=== PATIENT | male | born 1955 | race Caucasian/White ===

== ENCOUNTER 2016-08-11 09:01 | Emergency (ER) | payer MEDICAID ==
[~2016-08-11] VITALS: Ht 175.3 cm; Wt 88.5 kg
[~2016-08-11 09:01] MED LIST: AMLO5TAB PO; AMOXICOT500 MG PO; ASPIR-LOW81 MG PO; AUGMENTIN 875-1 EACH PO; BACTRIM DS 8001 TAB PO; BYSTOLIC5 MG PO; CIPRO 500MG TA500 MG PO; CITALOPRAM HYDR20 MG PO; CLOPIDOGREL75 M1 PO; FLOMAX 0.4MG C0.4 MG PO; LISINOPRIL 20MG20 MG PO; LORTAB 5/500 501 TAB PO; LORTAB 5/5001 TAB OR; NOMEDS *; VICODIN 5/6 EACH/PAK OR
--- OUTSIDE RECORDS SUMMARY | 2016-08-11 09:09 | External Medical Summary Rpt ---
Author Author , Organization [employer] Address Unknown Phone Unavailable Care Team Providers Care Snagger Name Role Phone EFRA RICARDO Unavailable Unavailable MARGARITA EFRA MARGARITA, ARNOLD Unavailable Unavailable MARGARITA BESSON, BESSON Unavailable Unavailable BESSON TORIBIO, BESSON Unavailable Unavailable TORIBIO KNUTSON MD, Unavailable Unavailable JEROMY KNUTSON MD [facility] Unavailable Unavailable [place], [facility] Unavailable Unavailable [place], [facility] [place] LESLI, LESLI Unavailable Unavailable LESLI BALDEMAR, Unavailable Unavailable LESLI BALDEMAR AXEL REYNA Unavailable Unavailable BRITTANY LIZ, BRITTANY Unavailable Unavailable LIZ [facility] Unavailable Unavailable INC, [facility] Unavailable Unavailable H[facility]PITAL P, [facility], Unavailable Unavailable [facility] Unavailable Unavailable IMAGING [facility], [facility] Unavailable Unavailable [facility], [facility] Unavailable Unavailable [facility], [facility] STUART ARANZA, STUART Unavailable Unavailable ARANZA [facility] Unavailable Unavailable [facility], [facility] DEBORA DIAMOND MD, Unavailable Unavailable DEBORA DIAMOND MD [facility] Un[facility], Unavailable Unavailable PLL, [facility], [facility] HAR[facility], [facility] Unavailable Unavailable SHOJAEI-TEMO, Unavailable Unavailable [facility]AE[facility]O [facility] Unavailable Unavailable JAL, SHOJAEI-TEMO JAL GABRIELLA, GABRIELLA Unavailable Unavailable GABRIELLA MAT, Unavailable Unavailable GABRIELLA MAT THERESA BRAGG, Unavailable Unavailable FAHAD DIAS Unavailable Unavailable Purpose Continuity of Care Document - 12-14-2012 through 2016 Problems Code Diagnosis DOS Provider Status I119 HYPERTENSIV 05-19-2016 [facility] E HEART PHYSICIANS DISEASE GROUP WITHOUT HEART FAILURE 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 SEPTUM GROUP [id number] ENCOUNTER 02-07-2016 [facility] RESPIRATORY EXAM M17192 ENCOUNTER 02-07-2016 [facility] LABORATORY EXAM I10 ESSENTIAL 01-27-2016 [facility] PRIMARY HYPERTENSIO N [id number] PAIN IN 12-30-2015 [facility] RIGHT LEG PHYSICIANS GROUP [id number] PAIN IN 12-30-2015 [facility] LEFT LEG PHYSICIANS GROUP J069 ACUTE UPPER 11-29-2015 [facility] RESPIRATORY INFECTION UNSPECIFIED M96160 PAIN IN LEG 10-28-2015 [facility] PHYSICIANS UNSPECIFIED GROUP D649 ANEMIA 10-07-2015 [facility] UNSPECIFIED PHYSICIANS [place] E119 TYPE 2 10-07-2015 [facility] MELLITUS HOLDINGS WITHOUT COMPLICATIO NS E538 DEFICIENCY 10-07-2015 [facility] OTHER PHYSICIANS SPECIFIED B LA GROUP VITAMINS E785 HYPERLIPIDE 10-07-2015 [facility] UNSPECIFIED HOLDINGS R531 WEAKNESS 10-07-2015 [facility] G589 MONONEUROPA 10-03-2015 [facility] THY PHYSICIANS, UNSPECIFIED PLLC K5289 OTH SPEC 09-26-2015 [facility] NONINFECTIV E GASTROENTER ITIS & COLITIS J329 CHRONIC 09-23-2015 [facility] SINUSITIS PHYSICIANS, UNSPECIFIED PLLC R42 DIZZINESS 09-23-2015 [facility] R509 FEVER 09-23-2015 [facility] UNSPECIFIED PHYSICIANS, PLLC R55 SYNCOPE AND 09-23-2015 [facility] P A76131 PERSONAL 09-23-2015 [facility] H[facility]ORY OF [facility] DEPENDENCE M6240 CONTRACTURE 09-20-2015 ARNOLD MARGARITA OF MUSCLE UNSPECIFIED SITE E039 HYPOTHYROID 05-30-2015 [facility] ISM PHYSICIANS UNSPECIFIED LA Z125 ENCOUNTER 05-30-2015 [facility] SCREENING PHYSICIANS MALIGNANT LA NEOPLASM PROSTATE J0100 ACUTE 05-23-2015 [facility] MAXILLARY PHYSICIANS, SINUSITIS PLLC UNSPECIFIED M150 PRIMARY 05-10-2015 ARNOLD MARGARITA GENERALIZED OSTEOARTHRI TIS M542 CERVICALGIA 04-23-2015 [facility] R079 CHEST PAIN 04-23-2015 [facility] UNSPECIFIED PHYSICIANS GROUP J9811 ATELECTASIS 04-03-2015 [facility] R0602 SHORTNESS 04-03-2015 [facility] OF [facility] I214 NON-ST 04-01-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 MED R51 HEADACHE 04-01-2015 [facility] R748 ABNORMAL 04-01-2015 [place] [facility] P ENZYMES 592.1 592.1 12-14-2012 [place] CALCULUS [facility] 592.9 592.9 12-14-2012 [place] URINARY [facility] NOS Allergies, Adverse Reactions, Alerts Type Allergy to substance Drug Allergy Adverse Reaction to Substance Substance Reaction Severity INGREDIENT: NO KNOWN Unknown Unknown - NO KNOWN DRUG ALLERGY No Known Allergies - Unknown Mild Nka Clinical Alert Notifications Alert Diabetes: no A1C in the last 6 months Diabetes: no eye exam in the last 365 days Diabetes: no influenza vaccine in the last 365 days Diabetes: no lipid panel in the last 365 days Diabetes: no urine protein screening in the last 365 days Medications Na ND Rx Da Fi Fi Am Da Di Ph RX Ph St me C No te ll ll ou ys ag ar # ys at rm s nt no ma ic us Or Da si cy ia de te s n re d GA 42 04 05 60 30 00 CL Ac BA 58 -2 -2 .0 00 IN ti PE 20 8- 6- 00 00 IC ve NT 11 20 20 42 IN 51 17 17 21 PH 8 51 AR 30 MA 0 CY MG CA PS UL E 64 03 04 4. 28 00 CL Ac T 38 -2 -1 00 00 IN ti D2 00 2- 4- 0 00 IC ve 73 20 20 39 1. 70 17 17 50 PH 25 6 94 AR MA MG CY (5 0, 00 0 UN IT ) AM 67 03 04 90 90 00 CL Ac LO 87 -2 -1 .0 00 IN ti DI 70 1- 4- 00 00 IC ve PI 19 20 20 42 NE 81 17 17 58 PH 0 81 AR BE MA SY CY LA TE 5 MG TA B TI 60 03 04 90 30 00 CL Ac ZA 50 -2 -1 .0 00 IN ti NI 50 2- 4- 00 00 IC ve DI 25 20 20 40 NE 20 17 17 34 PH 2 82 AR HC MA L CY 4 MG TA BL ET AM 67 02 03 30 30 00 CL Ac LO 87 -2 -1 .0 00 IN ti DI 70 0- 7- 00 00 IC ve PI 19 20 20 39 NE 81 17 17 46 PH 0 14 AR BE MA SY CY LA TE 5 MG TA B GA 45 02 03 60 30 00 CL Ac BA 96 -1 -1 .0 00 IN ti PE 30 3- 0- 00 00 IC ve NT 55 20 20 42 IN 65 17 17 21 PH 0 51 AR 30 MA 0 CY MG CA PS UL E AM 67 01 02 30 30 00 CL Ac LO 87 -1 -1 .0 00 IN ti DI 70 8- 0- 00 00 IC ve PI 19 20 20 39 NE 81 17 17 46 PH 0 14 AR BE MA SY CY LA TE 5 MG TA B 51 12 01 4. 28 00 CL Ac T 99 -1 -2 00 00 IN ti D2 10 5- 0- 0 00 IC ve 60 20 20 39 1. 40 16 17 50 PH 25 1 94 AR MA MG CY (5 0, 00 0 UN IT ) AM 67 12 01 30 30 00 CL Ac LO 87 -1 -2 .0 00 IN ti DI 70 9- 0- 00 00 IC ve PI 19 20 20 39 NE 81 16 17 46 PH 0 14 AR BE MA SY CY LA TE 5 MG TA B MO 16 12 01 30 30 00 CL Ac NT 72 -0 -0 .0 00 IN ti EL 90 2- 9- 00 00 IC ve UK 11 20 20 41 91 16 17 51 PH T 5 05 AR SO MA D CY 10 MG TA BL ET Sa 63 10 0 No li 80 -0 ne 70 9- Lo 10 20 ng Fl 07 13 er us 5 h Ac 10 ti ML ve Sy ri ng e ON 00 10 0 No DA 64 -0 NS 16 9- Lo ET 08 20 ng RO 02 13 er N 5 HC Ac L ti 4 ve MG /2 ML AL Mo 00 10 0 No rp 40 -0 hi 91 9- Lo ne 26 20 ng 13 13 er 10 0 MG Ac /M ti l ve Sy ri ng e Le 51 10 0 No vo 07 -0 fl 90 9- Lo ox 03 20 ng ac 52 13 er in 0 Ac 50 ti 0M ve G Ta bl et SO 00 10 0 No DI 40 -0 UM 97 9- Lo 98 20 ng CH 30 13 er LO 9 RI Ac DE ti ve 0. 9% SO DAVID TI ON Sa 63 10 0 No li 80 -0 ne 70 9- Lo 10 20 ng Fl 07 13 er us 5 h Ac 10 ti ML ve Sy ri ng e HY [address] 40 -0 OM 91 9- Lo OR 31 20 ng PH 23 13 er ON 0 E Ac 2 ti MG ve /M L CA RP UJ CT SD 00 10 0 No OM 64 -0 ET 11 9- Lo MARIN 49 20 ng ZI 53 13 er NE 5 Ac 25 ti ve MG /M L AM PU L Sa 63 10 0 No li 80 -0 ne 70 9- Lo 10 20 ng Fl 07 13 er us 5 h Ac 10 ti ML ve Sy ri ng e Vital Signs 12-14-2012 15:35 Name Value Interpretat Reference Comment ion Range Body 98.4 [degF] Temperature BP 80 mm[Hg] Diastolic BP Systolic 147 mm[Hg] Heart 98 /min Rate/Pulse O2% 98 % Respiratory 18 /min Rate 12-14-2012 15:33 Name Value Interpretat Reference Comment ion Range Body 98.4 [degF] Temperature 12-14-2012 13:41 Name Value Interpretat Reference Comment ion Range BP 94 mm[Hg] Diastolic BP Systolic 145 mm[Hg] Heart 84 /min Rate/Pulse O2% 96 % Respiratory 20 /min Rate 12-14-2012 02:40 Name Value Interpretat Reference Comment ion Range BP 95 mm[Hg] Diastolic BP Systolic 143 mm[Hg] Heart 82 /min Rate/Pulse O2% 96 % Respiratory 16 /min Rate 12-14-2012 01:20 Name Value Interpretat Reference Comment ion Range BP 101 mm[Hg] Diastolic BP Systolic 173 mm[Hg] Heart 76 /min Rate/Pulse O2% 99 % Respiratory 20 /min Rate Results Labs Lab Lab Date Result Refere Interp Status Commen Order Detail nces retati t Range on COMPREHENSIVE METABOLIC PANEL (12-14-2012 13:00) Glucose 140 74-106 complet 013 mg/dL ed Bld-mCn 13:00 c BUN 15 7-18 complet Bld-mCn 013 mg/dL ed c 13:00 Creat 1.5 0.8-1.3 complet SerPl-m 013 mg/dL ed Cnc 13:00 ESTIMAT 64 50-200 complet ED 013 ML/MIN ed CREATIN 13:00 INE CLEARAN CE GFR 48 Greater complet (ESTIMA 013 ML/MIN than ed KANCHAN) 13:00 60 Sodium 141 136-145 complet SerPl-s 013 mmoL/L ed Cnc 13:00 Potassi 4.1 3.5-5.1 complet um 013 mmoL/L ed SerPl-s 13:00 Cnc Chlorid 103 98-107 complet e 013 mmoL/L ed SerPl-s 13:00 Cnc CO2 29 21.0-32 complet SerPl-s 013 mmoL/L .0 ed Cnc 13:00 Calcium 9.2 8.5-10. complet 013 mg/dL 1 ed SerPl-m 13:00 Cnc Prot 7.9 6.4-8.2 complet SerPl-m 013 gm/dL ed Cnc 13:00 Albumin 4.4 3.4-5.0 complet 013 gm/dL ed SerPl-m 13:00 Cnc Globuli 3.5 1.3-3.2 complet n 013 gm/dL ed Ser-mCn 13:00 c Albumin 1.3 UNK 1.1-1.8 complet /Glob 013 ed SerPl-m 13:00 Rto Bilirub 0.6 0.2-1.0 complet 013 mg/dL ed SerPl-m 13:00 Cnc AST 17 U/L 15-37 complet SerPl-c 013 ed Cnc 13:00 ALT 40 U/L 30-65 complet SerPl-c 013 ed Cnc 13:00 ALP 126 U/L 50-136 complet SerPl-c 013 ed Cnc 13:00 CBC with AUTO DIFF (12-14-2012 13:00) WBC # 12-14- 7.9 4.8-10. complet Bld 013 K/MM3 8 ed Auto 13:00 RBC # 5.00 4.6-6.2 complet Bld 013 M/mm3 ed Auto 13:00 Hgb 14.6 14.1-18 complet Bld-mCn 013 g/dL .0 ed c 13:00 Hct Fr 44.1 % 42.0-52 complet Bld 013 .0 ed 13:00 MCV RBC 88.2 fl 82.2-97 complet 013 .8 ed 13:00 MCH RBC 29.1 pg 27-31.2 complet Qn 013 ed Auto 13:00 MEAN 33.0 31.8-35 complet CORPUSC 013 g/dl .4 ed ULAR 13:00 HGB CONC RDW RBC 14.8 % 11.5-17 complet Auto 013 .5 ed 13:00 Platele 228 142-424 complet t Bld 013 K/mm3 ed Ql 13:00 Manual MEAN 7.7 fl 7.4-10. complet PLATELE 013 4 ed T 13:00 VOLUME Granulo 79.9 % 37.0-80 complet cytes 013 .0 ed Fr Bld 13:00 Auto LYMPH % 14.5 % 10-50 complet 013 ed 13:00 Monocyt 5.1 % 1.7-9.3 complet es Fr 013 ed Bld 13:00 Auto Eosinop 0.4 % 0.1-12. complet hil Fr 013 0 ed Bld 13:00 Auto Basophi 0.1 % 0.1-2.0 complet ls Fr 013 ed Bld 13:00 Auto Granulo 6.3 1.3-8.0 complet cytes # 013 K/mm3 ed Bld 13:00 Auto Lymphoc 1.2 0.7-4.5 complet ytes Fr 013 K/mm3 ed Bld 13:00 Auto Monocyt 0.4 0.1-1.0 complet es # 013 K/mm3 ed Bld 13:00 Auto Eosinop 0.0 0.0-0.4 complet hil # 013 K/mm3 ed Bld 13:00 Auto Basophi 0.0 0-0.2 complet ls # 013 K/MM3 ed Bld 13:00 Auto URINALYSIS/COMPLETE (12-14-2012 13:00) URINE YELLOW YELLOW complet COLOR 013 ed 13:00 URINE CLEAR CLEAR complet APPEARA 013 ed NCE 13:00 URINE NEGATIV NEG complet GLUCOSE 013 E ed - 13:00 DIPSTIC K URINE NEGATIV NEG complet BILIRUB 013 E ed IN - 13:00 DIPSTIC K URINE NEGATIV NEG complet KETONE 013 E mg/dL ed 13:00 URINE Greater 1.005-1 complet SPECIFI 013 than .030 ed C 13:00 or GRAVITY equal to 1.030 URINE 3+ NEG complet BLOOD 013 ed 13:00 URINE 5.5 UNK 5.0-8.5 complet PH 013 ed 13:00 URINE NEGATIV NEG complet PROTEIN 013 E mg/dL ed - 13:00 DIPSTIC K URINE 0.2 NEG complet UROBILI 013 E.U./dL ed NOGEN - 13:00 DIPSTIC K URINE NEGATIV NEG complet NITRATE 013 E ed - 13:00 DIPSTIC K URINE NEGATIV NEG complet LEUK 013 E ed ESTERAS 13:00 E URINE 50-100 0 complet RBC 013 rbc/hpf ed 13:00 URINE OCC O complet WBC 013 wbc/hpf ed 13:00 URINE OCC OCC complet SQUAMOU 013 #/hpf ed S CELLS 13:00 URINE TRACE O complet BACTERI 013 ed A 13:00 URINE OCC NONE complet HYALINE 013 #/lpf ed CAST 13:00 URINE 2+ NONE complet MUCUS 013 ed 13:00 COMPREHENSIVE METABOLIC PANEL (12-14-2012 00:48) Glucose 138 74-106 complet 013 mg/dL ed Bld-mCn 00:48 c BUN 16 7-18 complet Bld-mCn 013 mg/dL ed c 00:48 Creat 1.5 0.8-1.3 complet SerPl-m 013 mg/dL ed Cnc 00:48 ESTIMAT 65 50-200 complet ED 013 ML/MIN ed CREATIN 00:48 INE CLEARAN CE GFR 48 Greater complet (ESTIMA 013 ML/MIN than ed KANCHAN) 00:48 60 Sodium 144 136-145 complet SerPl-s 013 mmoL/L ed Cnc 00:48 Potassi 3.7 3.5-5.1 complet um 013 mmoL/L ed SerPl-s 00:48 Cnc Chlorid 103 98-107 complet e 013 mmoL/L ed SerPl-s 00:48 Cnc CO2 30 21.0-32 complet SerPl-s 013 mmoL/L .0 ed Cnc 00:48 Calcium 9.0 8.5-10. complet 013 mg/dL 1 ed SerPl-m 00:48 Cnc Prot 7.8 6.4-8.2 complet SerPl-m 013 gm/dL ed Cnc 00:48 Albumin 4.3 3.4-5.0 complet 013 gm/dL ed SerPl-m 00:48 Cnc Globuli 3.5 1.3-3.2 complet n 013 gm/dL ed Ser-mCn 00:48 c Albumin 1.2 UNK 1.1-1.8 complet /Glob 013 ed SerPl-m 00:48 Rto Bilirub 0.4 0.2-1.0 complet 013 mg/dL ed SerPl-m 00:48 Cnc AST 19 U/L 15-37 complet SerPl-c 013 ed Cnc 00:48 ALT 39 U/L 30-65 complet SerPl-c 013 ed Cnc 00:48 ALP 117 U/L 50-136 complet SerPl-c 013 ed Cnc 00:48 CBC with AUTO DIFF (12-14-2012 00:48) WBC # 12-14-2 8.5 4.8-10. complet Bld 013 K/MM3 8 ed Auto 00:48 RBC # 12-14-2 4.76 4.6-6.2 complet Bld 013 M/mm3 ed Auto 00:48 Hgb 14.8 14.1-18 complet Bld-mCn 013 g/dL .0 ed c 00:48 Hct Fr 41.6 % 42.0-52 complet Bld 013 .0 ed 00:48 MCV RBC 87.3 fl 82.2-97 complet 013 .8 ed 00:48 MCH RBC 31.2 pg 27-31.2 complet Qn 013 ed Auto 00:48 MEAN 35.7 31.8-35 complet CORPUSC 013 g/dl .4 ed ULAR 00:48 HGB CONC RDW RBC 14.6 % 11.5-17 complet Auto 013 .5 ed 00:48 Platele 228 142-424 complet t Bld 013 K/mm3 ed Ql 00:48 Manual MEAN 7.7 fl 7.4-10. complet PLATELE 013 4 ed T 00:48 VOLUME Granulo 71.0 % 37.0-80 complet cytes 013 .0 ed Fr Bld 00:48 Auto LYMPH % 21.5 % 10-50 complet 013 ed 00:48 Monocyt 12-14- 5.8 % 1.7-9.3 complet es Fr 013 ed Bld 00:48 Auto Eosinop 2 1.5 % 0.1-12. complet hil Fr 013 0 ed Bld 00:48 Auto Basophi 2 0.3 % 0.1-2.0 complet ls Fr 013 ed Bld 00:48 Auto Granulo 10-09-2 6.0 1.3-8.0 complet cytes # 013 K/mm3 ed Bld 00:48 Auto Lymphoc 1.8 0.7-4.5 complet ytes Fr 013 K/mm3 ed Bld 00:48 Auto Monocyt 0.5 0.1-1.0 complet es # 013 K/mm3 ed Bld 00:48 Auto Eosinop 0.1 0.0-0.4 complet hil # 013 K/mm3 ed Bld 00:48 Auto Basophi 0.0 0-0.2 complet ls # 013 K/MM3 ed Bld 00:48 Auto URINALYSIS/COMPLETE (12-14-2012 00:40) URINE YELLOW YELLOW complet COLOR 013 ed 00:40 URINE CLEAR CLEAR complet APPEARA 013 ed NCE 00:40 URINE NEGATIV NEG complet GLUCOSE 013 E ed - 00:40 DIPSTIC K URINE NEGATIV NEG complet BILIRUB 013 E ed IN - 00:40 DIPSTIC K URINE NEGATIV NEG complet KETONE 013 E mg/dL ed 00:40 URINE 1.015 1.005-1 complet SPECIFI 013 UNK .030 ed C 00:40 GRAVITY URINE 3+ NEG complet BLOOD 013 ed 00:40 URINE 5.5 UNK 5.0-8.5 complet PH 013 ed 00:40 URINE NEGATIV NEG complet PROTEIN 013 E mg/dL ed - 00:40 DIPSTIC K URINE 0.2 NEG complet UROBILI 013 E.U./dL ed NOGEN - 00:40 DIPSTIC K URINE NEGATIV NEG complet NITRATE 013 E ed - 00:40 DIPSTIC K URINE NEGATIV NEG complet LEUK 013 E ed ESTERAS 00:40 E URINE 20-50 0 complet RBC 013 rbc/hpf ed 00:40 URINE 5-10 O complet WBC 013 wbc/hpf ed 00:40 URINE OCC OCC complet SQUAMOU 013 #/hpf ed S CELLS 00:40 URINE OCC O complet BACTERI 013 ed A 00:40 URINE 1+ NONE complet MUCUS 013 ed 00:40 Procedures Procedure DOS Code Location Performer Comment ECG 02037 [facility] GABRI[facility]LL[facility] ROUTINE 7 PHYSICIAN ECG S GROUP W/LEAST 12 LDS I&R ONLY ECG 43987 [facility] ROUTINE [facility] ECG INC INC W/LEAST 12 LDS TRCG ONLY W/O I&R ANES 51441 [facility] INTEG 6 ANESTH MUSC & OF THE NRV HEAD BLUE NECK&POST ERIOR TRUNK ADJT TIS 74524 [facility] TRNS/REAR 6 [facility] GMT INC INC F/C/C/M/N /A/G/H/F 10SQCM/< [place] [address] [facility], AXEL SURG 6 [facility] PATHOLOGY GROSS&LIZ ROSCOPIC EXAM ADJACENT 84304 [facility] TISSUE 6 [facility] TRANSFER/ INC INC REARGMT TRUNK 10 SQCM/< COLLECTIO 67762 [facility] N VENOUS 6 [facility] BLOOD INC INC VENIPUNCT URE ECG 29231 [facility] BROWN ROUTINE 6 [facility] W/LEAST P 12 LDS I&R ONLY BLOOD 72598 [facility] COUNT 6 [facility] COMPLETE INC INC AUTO&AUTO DIFRNTL WBC ECG 09409 [facility] ROUTINE 6 [facility] ECG INC INC W/LEAST 12 LDS TRCG ONLY W/O I&R COMPREHEN 05558 [facility] SIVE 6 [facility] METABOLIC INC INC PANEL HEMOGLOBI 37708 [facility] N 6 [facility] GLYCOSYLA INC INC KANCHAN A1C COLLECTIO 23633 [facility] N VENOUS 6 [facility] BLOOD INC INC VENIPUNCT URE BLOOD 21724 COMBINED COMBINED COUNT 6 PHYSICIAN PHYSICIAN COMPLETE S LA S LA AUTO&[place] [address] [facility] FOLIC 6 [facility] ACID [facility] SERUM CYANOCOBA 82065 COMBINED COMBINED MATY 6 PHYSICIAN PHYSICIAN VITAMIN S LA S LA B-12 [place] [address] [facility] FREE 6 [facility] [place] [address] [facility] THYROID 6 [facility] STIMULATI INC INC NG HORMONE TSH GLUC BLD 12784 [facility] GLUC MNTR 6 [facility] DEV INC INC CLEARED FDA SPEC HOME USE BLOOD 48595 [facility] COUNT 6 [facility] COMPLETE INC INC AUTO&AUTO DIFRNTL WBC BASIC 27280 [facility] METABOLIC 6 [facility] [place] [address] [facility] BALLESTEROS HEAD/BRAI 6 MEDICAL BALDEMAR N W/O IMAGING CONTRAST ASS MATERIAL ECG 98890 [facility] MERINOTRESA ROUTINE 6 [facility] W/LEAST P 12 LDS I&R ONLY NATRIURET 48113 [facility] IC 6 [facility] [place] [address] [facility] TROPONIN 6 [facility] QUANTITAT INC INC NEFTALI BLOOD 86375 [facility] COUNT 6 [facility] COMPLETE INC INC AUTO&AUTO DIFRNTL WBC ECG 84473 [facility] ROUTINE 6 [facility] ECG INC INC W/LEAST 12 LDS TRCG ONLY W/O I&R CREATINE 65494 [facility] KINASE MB 6 [facility] FRACTION INC INC ONLY COMPREHEN 67029 [facility] SIVE 6 [facility] METABOLIC INC INC PANEL CREATINE 40279 [facility] KINASE 6 [facility] TOTAL INC INC FIBRIN 91100 [facility] DGRADJ 6 [facility] PRODUCTS INC INC D-DIMER QUAL/SEMI BRUCE SEDIMENTA 53017 COMBINED COMBINED TION RATE 6 PHYSICIAN PHYSICIAN [place] [address] COMBINED COMBINED FREE 6 PHYSICIAN PHYSICIAN THYROXINE S LA S LA PROSTATE G0103 COMBINED COMBINED CANCER 6 PHYSICIAN PHYSICIAN SCREENING S LA S LA ; PSA TEST LIPID 76669 COMBINED COMBINED PANEL 6 PHYSICIAN PHYSICIAN S LA S LA 25 [address]87 [facility] HYDROXY 6 [facility] INCLUDES [facility] [facility]INGS FRACTIONS IF PERFORMED GENERAL 07491 COMBINED COMBINED HEALTH 6 PHYSICIAN [place] [address] COMBINED COMBINED TRIIODOTH 6 PHYSICIAN PHYSICIAN YRONINE S LA S LA T3 TOTAL TT3 ECG 43186 [facility] ROUTINE 6 [facility] ECG INC INC W/LEAST 12 LDS TRCG ONLY W/O I&R INJ [id number] EFRA KRAUS BETAMETHA 6 MARGARITA MARGARITA SONE ACETATE & PHOSPHATE 3 MG ECG 08572 ADELE ANGULO ROUTINE 6 [facility] ECG INC INC W/LEAST 12 LDS TRCG ONLY W/O I&R ECG 43893 ADELE ANGULO ROUTINE 6 [facility] ECG INC INC W/LEAST 12 LDS TRCG ONLY W/O I&R HOSPITAL 12337 [facility] DISCHARGE [address] [place] [address] INTERNAL MANAGEMEN MED T 30 MIN/< [place] [address] [facility] BALLESTEROS ANGIOGRAP 6 MEDICAL BALDEMAR HY CHEST IMAGING W/CONTRAS ASS T/NONCONT RAST FLUORO [id number] ADELE ANGULO MULTI 6 [facility] CORONARY INC INC ARTERIES LOW OSMOLAR CONT FLUOROSCO [id number] ADELE ANGULO PY LEFT 6 [facility] HEART LOW INC INC OSMOLAR CONTRAST MEASUREME [id number] ADELE ANGULO NT 6 [facility] CARDIAC INC INC SAMPLING PRESS LT HEART PERQ SBSQ [id number] CARE/DAY INTER[place] [address] [place] [address] MARTINEZ BALLESTEROS HEAD/BRAI 6 MEDICAL N W/O IMAGING CONTRAST ASS MATERIAL INITIAL [address]/DAY INTERNAL 50 MED MINUTES ECG 22499 ADELE BROWN ROUTINE [address] [place] [address] W/LEAST P 12 LDS I&R ONLY RADIOLOGI 20173 MARTINEZ BALLESTEROS C EXAM 6 MEDICAL CHEST 2 IMAGING VIEWS ASS FRONTAL&L ATERAL Encounters Encounter Start End Date Code Location Performer Type Date HOSPITAL [facility] - 7 7 [facility] T OFFICE [id number] [facility] GABRIELLA OUTPATIEN 7 7 PHYSICIAN T VISIT S GROUP 25 MINUTES OFFICE 20153 [facility] WARNERANCELMOTU-M OUTPATIEN 7 7 PHYSICIAN OGHADDAM T VISIT S GROUP 15 MINUTES HOSPITAL ADELE - 6 6 [facility] OUTPATIEN INC T HOSPITAL ADELE - 6 6 [facility]PAT[facility] INC T OFFICE 06264 [facility] STUART OUTPATIEN 6 6 PHYSICIAN ARANZA T NEW 20 S GROUP MINUTES OFFICE 32545 EF[facility] KRAUS OUTPATIEN 6 6 MARGARITA MARGARITA T VISIT 15 MINUTES OFFICE 03481 [facility] MICHELLE-M OUTPATIEN 6 6 PHYSICIAN OGHADDAM T VISIT S GROUP 15 MINUTES OFFICE 77161 EFRA KRAUS OUTPATIEN 6 6 MARGARITA MARGARITA T VISIT 15 MINUTES OFFICE 49872 [facility] WARNERANCELMOEI-M OUTPATIEN 6 6 PHYSICIAN SUSANNAH T NEW 45 S GROUP JAL MINUTES HOSPITAL ADELE - 6 6 [facility] OUTPATIEN INC T OFFICE 16166 EFRA PAINTER 6 6 MARGARITA MARGARITA T VISIT 15 MINUTES OFFICE 31726 EFRA KRAUS OUTPATIEN 6 6 MARGARITA MARGARITA T VISIT 15 MINUTES EMERGENCY 83602 [facility] 6 6 [facility] DEPARTMEN INC T VISIT LOW/MODER SEVERITY EMERGENCY 10123 RACHEL SOTO 6 6 PHYSICIAN LIZ DEPARTMEN S, PLLC T VISIT MODERATE SEVERITY HOSPITAL ADELE - 6 6 [facility] OUTPATIEN INC T OFFICE 66824 EFRA VERASPATIEN 6 6 MARGARITA MARGARITA T VISIT 15 MINUTES EMERGENCY 74294 ADELE 6 6 [facility] DEPARTMEN INC T VISIT MODERATE SEVERITY HOSPITAL ADELE - 6 6 [facility] OUTPATIEN INC T EMERGENCY 40673 [facility] V[facility], PLLC HIGH SEVERITY& THREAT FUNCJ OFFICE 44243 EFRA PAINTER 6 6 MARGARITA MARGARITA T VISIT 15 MINUTES OFFICE 86376 EFRA KRAUS OUTPATIEN 6 6 MARGARITA MARGARITA T VISIT 15 MINUTES OFFICE 95409 EFRA KRAUS OUTBEAU 6 6 MARGARITA MARGARITA T VISIT 15 MINUTES EMERGENCY 80160 [facility] 6 6 [facility] DEPARTMEN INC T VISIT LOW/MODER SEVERITY HOSPITAL ADELE - 6 6 [facility] OUTPATIEN INC T EMERGENCY [address] RACHEL BAILEY 6 6 PHYSICIAN U MAHSA DEPARTMEN S, [facility] T VISIT MODERATE SEVERITY OFFICE 09402 [facility] GABRI[facility]LLA OUTPATIEN 6 6 PHYSICIAN MAT T VISIT S GROUP 25 MINUTES HOSPITAL [facility] - 6 6 [facility]PAT[facility]EN INC T OFFICE 00092 EFRA PAINTER 6 6 MARGARITA MARGARITA T VISIT 15 MINUTES OFFICE 54217 EFRA PAINTER 6 6 MARGARITA MARGARITA T VISIT 15 MINUTES OFFICE 73091 EFRA KRAUS OUTPATIEN 6 6 MARGARITA MARGARITA T VISIT 15 MINUTES OFFICE 88381 [facility] OUTPATIEN 6 6 PHYSICIAN MAT T VISIT S GROUP 25 MINUTES HOSPITAL ADELE - 6 6 [facility] OUTPATIEN INC T OFFICE 23547 EFRA PAINTER 6 6 MARGARITA MARGARITA T VISIT 15 MINUTES OFFICE 82110 ARNOLD ARNOLD OUTPATIEN 6 6 MARGARITA MARGARITA T VISIT 15 MINUTES OFFICE 99079 EFRA KRAUS OUTPATIEN 6 6 MARGARITA MARGARITA T VISIT 15 MINUTES HOSPITAL [facility] - 6 6 [facility]PATI[facility] INC T OFFICE 68742 [facility] OUTPATIEN 6 6 PHYSICIAN MAT T VISIT S GROUP 25 MINUTES [facility] ADELE - 6 6 [facility] INPATIENT INC Emergency DOMINGO KNUTSON MD (ER) 3 12:48 3 15:35 [facility] Emergency DOMINGO DIAMOND (ER) 3 01:00 3 02:52 [facility] [place]
--- OUTSIDE RECORDS SUMMARY | 2016-08-11 09:09 | External Medical Summary Rpt ---
Author Author , Organization [employer] Address Unknown Phone Unavailable Care Team Providers Care Professional Soccer Player Name Role Phone EFRA RICARDO Unavailable Unavailable [...] BRITTANY LIZ, BRITTANY Unavailable Unavailable LIZ [facility] Un[facility] Unavailable INC, [facility] Unavailable [facility]available HOSPITAL P, [facility], Unavailable Unavailable [facility] Unavailable Unavailable IMAG[facility], [facility] Unavailable Unavailable [facility], [facility] Unavailable Unavailable [facility], [facility] STUART ARANZA, STUART Unavailable Unavailable ARANZA [facility] Unavailable Unavailable [facility], [facility] [place]A DIAMOND MD, Unavailable Unavailable DEB[place]A DIAMOND MD [facility] Unavailable [facility]available [facility], Unavailable Unavailable PLL, [facility], [facility] LEODAN HARMON, LEODAN [facility] Unavailable Unavailable SH[facility], Unavailable Unavailable [facility] Unavailable Unavailable JAL, [facility] JAL GABRIELLA, GABRIELLA Unavailable Unavailable GABRIELLA MAT, Unavailable Unavailable GBARIELLA MAT THERESA BRAGG, Unavailable Unavailable FAHAD DIAS Unavailable Unavailable Purpose Continuity of Care Document - 12-14-2012 through 2016 Problems Code Diagnosis DOS Provider Status I119 HYPERTENSIV 05-19-2016 [facility] E HEART PHYSICIANS DISEASE GROUP WITHOUT HEART FAILURE 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 R5383 OTHER 05-19-2016 [facility] FATIGUE PHYSICIANS GROUP G629 POLYNEUROPA 04-20-2016 [facility] THY PHYSICIANS UNSPECIFIED GROUP R202 PARESTHESIA 04-20-2016 [facility] OF SKIN PHYSICIANS GROUP 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 D234 OTHER 02-20-2016 [facility] BENIGN PHYSICIANS NEOPLASM OF GROUP SKIN OF SCALP AND NECK D485 NEOPLASM OF 02-20-2016 [facility] UNCERTAIN PHYSICIANS BEHAVIOR OF GROUP SKIN D492 NEOPLASM OF 02-20-2016 [facility] BEHAVIOR INC BONE SOFT TISSUE & SKIN L821 OTHER 02-20-2016 [facility] KERATOSIS R52 PAIN 02-20-2016 [facility] UNSPECIFIED PHYSICIANS GROUP D4989 NEOPLASM OF 02-07-2016 [facility] PHYSICIANS UNSPECIFIED GROUP BEHAVIOR OT SPEC SITES J309 ALLERGIC 02-07-2016 [facility] RHINITIS PHYSICIANS UNSPECIFIED GROUP J342 DEVIATED 02-07-2016 [facility] NASAL PHYSICIANS SEPTUM GROUP E55280 ENCOUNTER 02-07-2016 [facility] P AL RESPIRATORY EXAM D04337 ENCOUNTER 02-07-2016 [facility] P AL LABORATORY EXAM I10 ESSENTIAL 01-27-2016 EFRA [facility] PRIMARY HYPERTENSIO N X52103 PAIN IN 12-30-2015 [facility] RIGHT LEG PHYSICIANS GROUP L51124 PAIN IN 12-30-2015 [facility] LEFT LEG PHYSICIANS GROUP J069 ACUTE UPPER 11-29-2015 EFRA [facility]ILA RESPIRATORY INFECTION UNSPECIFIED V14289 PAIN IN LEG 10-28-2015 [facility] PHYSICIANS UNSPECIFIED GROUP D649 ANEMIA 10-07-2015 [...] SINUSITIS PHYSICIANS, UNSPECIFIED PLLC R42 DIZZINESS 09-23-2015 [facility] R509 FEVER 09-23-2015 [facility] UNSPECIFIED PHYSICIANS, PLLC R55 SYNCOPE AND 09-23-2015 [facility] P [id number] PERSONAL 09-23-2015 [facility] HISTORY OF [facility] P DEPENDENCE M6240 CONTRACTURE 09-20-2015 ARNOLD MARGARITA OF MUSCLE UNSPECIFIED SITE E039 HYPOTHYROID 05-30-2015 [facility] PHYSICIANS UNSPECIFIED LA Z125 ENCOUNTER 05-30-2015 [facility] SCREENING PHYSICIANS MALIGNANT LA NEOPLASM PROSTATE J0100 ACUTE 05-23-2015 [facility] MAXILLARY PHYSICIANS, SINUSITIS PLLC UNSPECIFIED M150 PRIMARY 05-10-2015 [facility] MARGARITA GENERALIZED OSTEOARTHRI TIS M542 CERVICALGIA 04-23-2015 [facility] R079 CHEST PAIN 04-23-2015 [facility] UNSPECIFIED PHYSICIANS GROUP J9811 ATELECTASIS 04-03-2015 [facility] R0602 SHORTNESS 04-03-2015 [facility] I214 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-01-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 MED R51 HEADACHE 04-01-2015 [facility] R748 ABNORMAL 04-01-2015 [facility] P ENZYMES 592.1 592.1 12-14-2012 [place] CALCULUS [facility] 592.9 592.9 12-14-2012 [place] URINARY [facility] NOS Allergies, Adverse Reactions, Alerts Type [...] ve /M L CA RP UJ CT [place] 00 10 0 No OM 64 -0 [...] Procedure DOS Code Location Performer Comment ECG 17477 [facility] GABRI[facility]LLA ROUTINE 7 PHYSICIAN ECG S GROUP W/LEAST 12 LDS I&R ONLY ECG 96624 [facility] ROUTINE 7 [facility] ECG INC INC W/LEAST 12 LDS TRCG ONLY W/O I&R ANES 58098 [facility] INTEG 6 ANESTH MUSC & OF THE NRV HEAD BLUE NECK&POST ERIOR TRUNK ADJT TIS 00419 [facility] TRNS/REAR 6 [facility] GMT INC INC F/C/C/M/N /A/G/H/F 10SQCM/< [place] [address] [facility], AXEL SURG 6 [facility] PATHOLOGY GROSS&LIZ ROSCOPIC EXAM ADJACENT 68799 [facility] TISSUE 6 [facility] TRANSFER/ INC INC REARGMT TRUNK 10 SQCM/< COLLECTIO 70468 [facility] N VENOUS 6 [facility] BLOOD INC INC VENIPUNCT URE ECG 98709 [facility] BROWN ROUTINE [address] [facility] W/LEAST P 12 LDS I&R ONLY BLOOD 43654 [facility] ANGUL[facility] COUNT 6 [facility] COMPLETE INC INC AUTO&AUTO DIFRNTL WBC ECG 17737 [facility] AN[facility] ROUTINE 6 [facility] ECG INC INC W/LEAST 12 LDS TRCG ONLY W/O I&R COMPREHEN 13590 [facility] SIVE 6 [facility] METABOLIC INC INC PANEL HEMOGLOBI 66285 [facility] N 6 [facility] GLYCOSYLA INC INC KANCHAN A1C COLLECTIO 73551 [facility] N VENOUS 6 [facility] BLOOD INC INC VENIPUNCT URE BLOOD 82806 COMBINED COMBINED COUNT 6 PHYSICIAN PHYSICIAN COMPLETE S LA S LA AUTO&[place] [address] [facility] FOLIC 6 [facility] O[facility] ACID [facility] SERUM CYANOCOBA 26927 COMBINED COMBINED MATY 6 PHYSICIAN PHYSICIAN VITAMIN S LA S LA B-12 [place] [address] [facility] ANGULO FREE 6 [facility] [place] [address] [facility] THYROID 6 [facility] STIMULATI INC INC NG HORMONE TSH GLUC BLD 04752 [facility] GLUC MNTR 6 [facility] DEV INC INC CLEARED FDA SPEC HOME USE BLOOD 65292 [facility] ANGULO COUNT 6 [facility] COMPLETE INC INC AUTO&AUTO DIFRNTL WBC BASIC 64221 [facility] METABOLIC 6 [facility] [place] [address] [facility] BALLESTEROS HEAD/BRAI 6 MEDICAL BALDEMAR N W/O IMAGING CONTRAST ASS MATERIAL ECG 80827 [facility] MERINOTRESA ROUTINE 6 [facility] W/LEAST P 12 LDS I&R ONLY NATRIURET 36612 [facility] ANGULO IC 6 [facility] [place] [address] [facility] TROPONIN 6 [facility] QUANTITAT INC INC NEFTALI BLOOD 99216 [facility] AN[facility]ULO COUNT 6 [facility] COMPLETE INC INC AUTO&AUTO DIFRNTL WBC ECG 42128 [facility] ANGULO ROUTINE 6 [facility] ECG INC INC W/LEAST 12 LDS TRCG ONLY W/O I&R CREATINE 27662 [facility] AN[facility] KINASE MB 6 [facility] FRACTION INC INC ONLY COMPREHEN 25061 [facility] SIVE 6 [facility] METABOLIC INC INC PANEL CREATINE 39601 [facility] KINASE 6 [facility] TOTAL INC INC FIBRIN 28134 [facility] DGRADJ 6 [facility] PRODUCTS INC INC D-DIMER QUAL/SEMI BRUCE SEDIMENTA 75393 COMBINED COMBINED TION RATE 6 PHYSICIAN PHYSICIAN [place] [address] COMBINED COMBINED FREE 6 PHYSICIAN PHYSICIAN THYROXINE S LA S LA PROSTATE G0103 COMBINED COMBINED CANCER 6 PHYSICIAN PHYSICIAN SCREENING S LA S LA ; PSA TEST LIPID 29921 COMBINED COMBINED PANEL 6 PHYSICIAN PHYSICIAN S LA S LA 25 37677 [facility] HYDROXY 6 OMAR OMAR INCLUDES [employer] FRACTIONS IF PERFORMED GENERAL 74199 COMBINED COMBINED HEALTH 6 PHYSICIAN [place] [address] COMBINED COMBINED TRIIODOTH 6 PHYSICIAN PHYSICIAN YRONINE S LA S LA T3 TOTAL TT3 ECG 04601 [facility] ANGULO ROUTINE 6 [facility] ECG INC INC W/LEAST 12 LDS TRCG ONLY W/O I&R INJ J0702 EFRA KRAUS BETAMETHA 6 MARGARITA MARGARITA SONE ACETATE & PHOSPHATE 3 MG ECG 60619 [facility] ANGULO ROUTINE 6 [facility] ECG INC INC W/LEAST 12 LDS TRCG ONLY W/O I&R ECG 62280 [facility] ANGULO ROUTINE 6 [facility] ECG INC INC W/LEAST 12 LDS TRCG ONLY W/O I&R HOSPITAL 78497 [facility] DISCHARGE [address] [place] [address] INTERNAL MANAGEMEN MED T 30 MIN/< [place] [address] [facility] CITY[facility]ravin BALLESTEROS ANGIOGRAP 6 MEDICAL BALDEMAR HY CHEST IMAGING W/CONTRAS ASS T/NONCONT RAST FLUORO [id number] [facility] MULTI 6 [facility] CORONARY INC INC ARTERIES LOW OSMOLAR CONT FLUOROSCO [id number] [facility] PY LEFT 6 [facility] HEART LOW INC INC OSMOLAR CONTRAST MEASUREME [id number] A[facility] ANGULO NT 6 [facility] CARDIAC INC INC SAMPLING PRESS LT HEART PERQ SBSQ [address] CARE/DAY [place] [address] [place] [address] MARTINEZ BALLESTEROS HEAD/BRAI 6 MEDICAL N W/O IMAGING CONTRAST ASS MATERIAL INITIAL [address]/DAY INTERNAL 50 MED MINUTES ECG 32983 [facility] BROWN ROUTINE [address] [place] [address] W/LEAST P 12 LDS I&R ONLY RADIOLOGI 65682 MARTINEZ BALLESTEROS C EXAM 6 MEDICAL CHEST 2 IMAGING VIEWS ASS FRONTAL&L ATERAL Encounters Encounter Start End Date Code Location Performer Type Date HOSPITAL [facility] - 7 7 [facility] OUTPATIEN INC T OFFICE 23184 [facility] GAB[facility]LL[facility] OUTPATIEN 7 7 PHYSICIAN T VISIT S GROUP 25 MINUTES OFFICE 75249 [facility] WARN[facility]ANCEL[facility]-M OUTPATIEN 7 7 PHYSICIAN OGHADDAM T VISIT S GROUP 15 MINUTES HOSPITAL ADELE - 6 6 [facility] OUTPATIEN INC T HOSPITAL [facility]DELE - 6 6 [facility] OUTPATIEN INC T OFFICE 09801 [facility] STUART OUTPATIEN 6 6 PHYSICIAN ARANZA T NEW 20 S GROUP MINUTES OFFICE 60687 EFRA KRAUS OUTPATIEN 6 6 MARGARITA MARGARITA T VISIT 15 MINUTES OFFICE 46683 [facility] MICHELLE-M OUTPATIEN 6 6 PHYSICIAN OGHADDAM T VISIT S GROUP 15 MINUTES OFFICE 12246 EFRA KRAUS OUTPATIEN 6 6 MARGARITA MARGARITA T VISIT 15 MINUTES OFFICE 52923 [facility] WARNERANCELMOEI-M OUTPATIEN 6 6 PHYSICIAN SUSANNAH T NEW 45 S GROUP JAL MINUTES HOSPITAL [facility]DELE - 6 6 [facility] OUTPATIEN INC T OFFICE 56877 EFRA PAINTER 6 6 MARGARITA MARGARITA T VISIT 15 MINUTES OFFICE 82042 EFRA KRAUS OUTPATIEN 6 6 MARGARITA MARGARITA T VISIT 15 MINUTES EMERGENCY 05296 [facility] 6 6 [facility] DEPARTMEN INC T VISIT LOW/MODER SEVERITY EMERGENCY 19548 [facility] SOTO 6 6 PHYSICIAN LIZ DEPARTMEN S, PLLC T VISIT MODERATE SEVERITY HOSPITAL [facility] - 6 6 [facility] OUTPATIEN INC T OFFICE 62234 EFRA VERASPATIEN 6 6 MARGARITA MARGARITA T VISIT 15 MINUTES EMERGENCY 07312 [facility] 6 6 [facility] DEPARTMEN INC T VISIT MODERATE SEVERITY HOSPITAL [facility] - 6 6 [facility] OUTPATIEN INC T EMERGENCY 08107 [facility] VISIT S, PLLC HIGH SEVERITY& THREAT FUNCJ OFFICE 41175 EFRA PAINTER 6 6 MARGARITA MARGARITA T VISIT 15 MINUTES OFFICE 71163 [facility]RA KRAUS OUTPATIEN 6 6 MARGARITA MARGARITA T VISIT 15 MINUTES OFFICE 96497 EFRA KRAUS OUTBEAU 6 6 MARGARITA MARGARITA T VISIT 15 MINUTES EMERGENCY 04839 [facility] 6 6 [facility] DEPARTMEN INC T VISIT LOW/MODER SEVERITY HOSPITAL [facility] - 6 6 [facility] OUTPATIEN INC T EMERGENCY 97248 RACHEL BAILEY 6 6 PHYSICIAN U MAHSA DEPARTMEN S, [facility] T VISIT MODERATE SEVERITY OFFICE 92767 [facility] OUTPATIEN 6 6 PHYSICIAN MAT T VISIT S GROUP 25 MINUTES HOSPITAL ADELE - 6 6 [facility] OUTPATIEN INC T OFFICE 29144 EFRA PAINTER 6 6 MARGARITA MARGARITA T VISIT 15 MINUTES OFFICE 16953 EFRA PAINTER 6 6 MARGARITA MARGARITA T VISIT 15 MINUTES OFFICE 46043 EFRA KRAUS OUTPATIEN 6 6 MARGARITA MARGARITA T VISIT 15 MINUTES OFFICE 24415 [facility] OUTPATIEN 6 6 PHYSICIAN MAT T VISIT S GROUP 25 MINUTES HOSPITAL ADELE - 6 6 [facility] OUTPATIEN INC T OFFICE 99584 EFRA PAINTER 6 6 MARGARITA MARGARITA T VISIT 15 MINUTES OFFICE 20644 ARNOLD ARNOLD OUTPATIEN 6 6 MARGARITA MARGARITA T VISIT 15 MINUTES OFFICE 62373 EFRA KRAUS OUTPATIEN 6 6 MARGARITA MARGARITA T VISIT 15 MINUTES HOSPITAL [facility] - 6 6 [facility] OUTPATIEN INC T OFFICE 00417 [facility] OUTPATIEN 6 6 PHYSICIAN MAT T VISIT S GROUP 25 MINUTES [facility] ADELE - 6 6 [facility] INPATIENT INC Emergency DOMINGO KNUTSON MD (ER) 3 12:48 3 15:35 [facility] Emergency DOMINGO DIAMOND (ER) 3 01:00 3 02:52 [facility] [place]
--- OUTSIDE RECORDS SUMMARY | 2016-08-11 09:11 | External Medical Summary Rpt ---
Author Author , Organization [employer] Address Unknown Phone Unavailable Care Team Providers Care Consulting Utility Forester Name Role Phone EFRA AVILA, EFRA Unavailable Unavailable MARGARITA EFRA MARGARITA, EFRA Unavailable Unavailable MARGARITA BESSON, BESSON Unavailable Unavailable BESSON TORIBIO, BESSON Unavailable Unavailable [facility]OR[facility] Unavailable Unavailable [facility], [facility] Unavailable Unavailable [facility], [facility] [place] LESLI, LESLI Unavailable Unavailable LESLI BALDEMAR, Unavailable Unavailable LESLI BALDEMAR AXEL REYNA Unavailable Unavailable BRITTANY LIZ, BRITTANY Unavailable Unavailable [facility] Unavailable Unavailable INC, [facility] Unavailable Unavailable HOSPITAL P, [facility], Unavailable Unavailable [facility] Unavailable [facility]available IMAGING ASS, [facility] Unavailable Unavailable [facility], [facility] Unavailable Unavailable [facility], [facility] STUART ARANZA, STUART Unavailable Unavailable ARANZA [facility] Unavailable Unavailable [facility], [facility] Unavailable Un[facility], Un[facility] Unavailable PLL[facility], [facility] SADEK MOH, SADEK MOH Unavailable Unavailable SHOJAEI[facility]TEM[facility], Unavailable Unavailable [facility]AE[facility] Unavailable Unavailable JAL, SHOJAEI-TEMO JAL GABRIELLA, GABRIELLA Unavailable Unavailable GABRIELLA MAT, Unavailable Unavailable GABRIELLA MAT THERESA BRAGG, Unavailable Unavailable FAHAD DIAS Unavailable Unavailable Purpose Continuity of Care Document - 04-01-2015 through 2016 Problems Code Diagnosis DOS Provider Status I119 HYPERTENSIV 05-19-2016 [facility] E HEART PHYSICIANS DISEASE GROUP WITHOUT HEART FAILURE I2510 ASHD [place] BAND 05-19-2016 [facility] CORONARY PHYSICIANS ARTERY W/O GROUP ANGINA PECTORIS R5383 OTHER 05-19-2016 [facility] FATIGUE PHYSICIANS GROUP G629 POLYNEUROPA 04-20-2016 [facility] THY PHYSICIANS UNSPECIFIED GROUP R202 PARESTHESIA 04-20-2016 [facility] OF SKIN PHYSICIANS GROUP 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 D234 OTHER 02-20-2016 [facility] BENIGN PHYSICIANS NEOPLASM OF GROUP SKIN OF SCALP AND NECK D485 NEOPLASM OF 02-20-2016 [facility] UNCERTAIN PHYSICIANS BEHAVIOR OF GROUP SKIN D492 NEOPLASM OF 02-20-2016 [facility] BONE SOFT TISSUE & SKIN L821 OTHER 02-20-2016 [facility] KERATOSIS R52 PAIN 02-20-2016 [facility] UNSPECIFIED PHYSICIANS GROUP D4989 NEOPLASM OF 02-07-2016 [facility] PHYSICIANS UNSPECIFIED GROUP BEHAVIOR OT SPEC SITES J309 ALLERGIC 02-07-2016 [facility] RHINITIS PHYSICIANS UNSPECIFIED GROUP J342 DEVIATED 02-07-2016 [facility] NASAL PHYSICIANS SEPTUM GROUP [id number] ENCOUNTER 02-07-2016 [facility] P AL RESPIRATORY EXAM T45377 ENCOUNTER 02-07-2016 [facility] P AL LABORATORY EXAM I10 ESSENTIAL 01-27-2016 EFRA AVILA PRIMARY HYPERTENSIO N [id number] PAIN IN 12-30-2015 [facility] RIGHT LEG PHYSICIANS GROUP [id number] PAIN IN 12-30-2015 [facility] LEFT LEG PHYSICIANS GROUP J069 ACUTE UPPER 11-29-2015 EFRA AVILA RESPIRATORY INFECTION UNSPECIFIED [id number] PAIN IN LEG 10-28-2015 [facility] PHYSICIANS UNSPECIFIED GROUP D649 ANEMIA 10-07-2015 [...] SINUSITIS PHYSICIANS, UNSPECIFIED PLLC R42 DIZZINESS 09-23-2015 [facility] R509 FEVER 09-23-2015 [facility] UNSPECIFIED PHYSICIANS, PLLC R55 SYNCOPE AND 09-23-2015 [facility] P [id number] PERSONAL 09-23-2015 [facility] P DEPENDENCE M6240 CONTRACTURE 09-20-2015 EFRA MARGARITA OF MUSCLE UNSPECIFIED SITE E039 HYPOTHYROID 05-30-2015 [facility] UNSPECIFIED [place] Z125 ENCOUNTER 05-30-2015 [facility] MALIGNANT LA NEOPLASM PROSTATE J0100 ACUTE 05-23-2015 [facility]ARY PH[facility], SINUSITIS PLLC UNSPECIFIED M150 PRIMARY 05-10-2015 ARNDAT MARGARITA GENERALIZED OSTEOARTHRI TIS M542 CERVICALGIA 04-23-2015 [facility] R079 CHEST PAIN 04-23-2015 [facility] UNSPECIFIED PHYSICIANS GROUP J9811 ATELECTASIS 04-03-2015 [facility] R0602 SHORTNESS 04-03-2015 [facility] I214 NON-ST 04-01-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 28 00 CL Ac T 38 -2 -1 00 00 IN ti D2 00 2- 4- 0 00 IC ve 73 20 20 39 1. 70 17 17 50 PH 25 6 94 AR MA MG CY (5 0, 00 0 UN IT ) TI 60 03 04 90 30 00 [...] D CY 10 MG TA BL ET Procedures Procedure DOS Code Location Performer Comment ECG 92517 [facility] ROUTINE 7 [facility] ECG INC INC W/LEAST 12 LDS TRCG ONLY W/O I&R ECG 14670 [facility] ROUTINE 7 PHYSICIAN ECG S GROUP W/LEAST 12 LDS I&R ONLY ADJT TIS 70603 [facility] TRNS/REAR 6 [facility] GMT INC INC F/C/C/M/N /A/G/H/F 10SQCM/< ANES 43048 [facility] 6 ANESTH MUSC & OF THE NRV HEAD BLUE NECK&[place] [address] [facility], AXEL SURG 6 LLC PATHOLOGY GROSS&LIZ ROSCOPIC EXAM ADJACENT 90585 [facility] TISSUE 6 [facility] TRANSFER/ INC INC REARGMT TRUNK 10 SQCM/< BLOOD 46952 [facility] COUNT 6 [facility] COMPLETE INC INC AUTO&AUTO DIFRNTL WBC COLLECTIO 60640 [facility] N VENOUS 6 [facility] BLOOD INC INC VENIPUNCT URE ECG 76726 [facility] ROUTINE 6 [facility] ECG INC INC W/LEAST 12 LDS TRCG ONLY W/O I&R ECG 14963 [facility] ROUTINE 6 [facility] W/LEAST P 12 LDS I&R ONLY COMPREHEN 08257 [facility] SIVE 6 [facility] METABOLIC INC INC PANEL COLLECTIO 07837 [facility] N VENOUS 6 [facility] BLOOD INC INC VENIPUNCT URE HEMOGLOBI 74240 [facility] N 6 [facility] GLYCOSYLA INC INC KANCHAN A1C CYANOCOBA 49327 COMBINED COMBINED MATY 6 PHYSICIAN PHYSICIAN VITAMIN S LA S LA B-12 [place] [address] [facility] FOLIC 6 [facility] HOLDING SERUM BLOOD 88915 COMBINED COMBINED COUNT 6 PHYSICIAN PHYSICIAN COMPLETE S LA S LA AUTO&AUTO DIFRNTL WBC BASIC 56680 [facility] ZHENGON METABOLIC 6 [facility] [place] [address] [facility] FREE 6 [facility] [place] [address] [facility] THYROID 6 [facility] STIMULATI INC INC NG HORMONE TSH BLOOD 26160 [facility] COUNT 6 [facility] COMPLETE INC INC AUTO&AUTO DIFRNTL WBC GLUC BLD 13010 [facility] GLUC MNTR 6 [facility] DEV INC INC CLEARED FDA SPEC HOME USE NATRIURET 67525 [facility] IC 6 [facility] PEPTIDE INC INC ECG 59599 [facility] ROUTINE 6 [facility] ECG INC INC W/LEAST 12 LDS TRCG ONLY W/O I&R CREATINE 72155 [facility] KINASE 6 [facility] [place] [address] [facility] TROPONIN 6 [facility] QUANTITAT INC INC NEFTALI BLOOD 70181 [facility] COUNT 6 [facility] COMPLETE INC INC AUTO&AUTO DIFRNTL WBC ECG 97519 [facility] BROWN ROUTINE 6 [facility] W/LEAST P 12 LDS I&R ONLY CREATINE 96619 [facility] KINASE MB 6 [facility] FRACTION INC INC ONLY COMPREHEN 63478 A[facility] SIVE 6 [facility] METABOLIC INC INC PANEL FIBRIN 91009 [facility] DGRADJ 6 [facility] PRODUCTS INC INC D-DIMER QUAL/[place] [address] BENNIEPravin LESLI HEAD/BRAI 6 MEDICAL BALDEMAR N W/[place] [address] COMBINED COMBINED TRIIODOTH 6 PHYSICIAN PHYSICIAN YRONINE S LA S LA T3 TOTAL TT3 GENERAL 68874 COMBINED COMBINED HEALTH 6 PHYSICIAN [place] [address] COMBINED COMBINED FREE 6 PHYSICIAN PHYSICIAN THYROXINE S LA S LA SEDIMENTA 55924 COMBINED COMBINED TION RATE 6 PHYSICIAN PHYSICIAN RBC S LA S LA NON-AUTOM ATED 25 68286 [facility] HYDROXY 6 OMAR OMAR INCLUDES HOLDINGS HOLDINGS FRACTIONS IF PERFORMED PROSTATE G0103 COMBINED COMBINED CANCER 6 PHYSICIAN PHYSICIAN SCREENING S LA S LA ; PSA TEST LIPID 97112 COMBINED COMBINED PANEL 6 PHYSICIAN PHYSICIAN S LA S LA ECG 12237 [facility] ZHENGON ROUTINE 6 [facility] ECG INC INC W/LEAST 12 LDS TRCG ONLY W/O I&R INJ J0702 EFRA KRAUS BETAMETHA 6 MARGARITA MARGARITA SONE ACETATE & PHOSPHATE 3 MG ECG 60390 [facility] ROUTINE 6 [facility] ECG INC INC W/LEAST 12 LDS TRCG ONLY W/O I&R ECG 32509 [facility] ROUTINE 6 [facility] ECG INC INC W/LEAST 12 LDS TRCG ONLY W/O I&R HOSPITAL 96286 [facility] STEPHANIE DISCHARGE 6 [facility] INTERNAL MANAGEMEN MED T 30 MIN/< [place] [address] MARTINEZ LOBOCHER ANGIOGRAP 6 MEDICAL BALDE[facility] HY CHEST IMAGING W/CONTRAS ASS T/NONCONT RAST SBSQ [address]/DAY INTERNAL 25 MED MINUTES FLUOROSCO [id number] [facility] PY LEFT 6 [facility] HEART LOW INC INC OSMOLAR CONTRAST MEASUREME [id number] [facility] NT 6 [facility] CARDIAC INC INC SAMPLING PRESS LT HEART PERQ FLUORO V8966TH [facility] MULTI 6 [facility] CORONARY INC [place] [address] MARTINEZ BALLESTEROS HEAD/BRAI 6 MEDICAL N W/O IMAGING CONTRAST ASS MATERIAL ECG 87146 [facility] STEPHANIE ROUTINE [address] [facility] W/LEAST P 12 LDS I&R ONLY INITIAL [address]/DAY INTERNAL 50 MED MINUTES RADIOLOGI 44410 MARTINEZ LESLI C EXAM 6 MEDICAL CHEST 2 IMAGING VIEWS ASS FRONTAL&L ATERAL Encounters Encounter Start End Date Code Location Performer Type Date OFFICE 69848 [facility] GABRIELLA OUTBEAU 7 7 PHYSICIAN T VISIT S GROUP 25 MINUTES HOSPITAL [facility] - 7 7 [facility] OUTPATIEN INC T OFFICE 22547 [facility] LASHANDA PAINTER 7 7 PHYSICIAN SWAPNILAM T VISIT S GROUP 15 MINUTES HOSPITAL [facility] - 6 6 [facility] OUTPATIEN INC T OFFICE 73408 [facility] NARCISO OUTPATIEN 6 6 PHYSICIAN ARANZA T NEW 20 S GROUP MINUTES [facility]OSPITAL [facility] 6 6 [facility] OUTPATIEN INC T OFFICE 81587 EFRA KRAUS OUTPATIEN 6 6 MARGARITA MARGARITA T VISIT 15 MINUTES OFFICE 55299 [facility] LASHANDA PAINTER 6 6 PHYSICIAN OGTOMASDDAM T VISIT S GROUP 15 MINUTES OFFICE 03547 EFRA PAINTER 6 6 MARGARITA MARGARITA T VISIT 15 MINUTES HOSPITAL [facility] - 6 6 [facility] OUTPATIEN INC T OFFICE 52216 [facility] MICHELLEChristineAlfred MADINA 6 6 PHYSICIAN SUSANNAH Johnson NEW 45 S GROUP JAL MINUTES OFFICE 03314 EFRA PAINTER 6 6 MARGARITA MARGARITA T VISIT 15 MINUTES OFFICE 43145 EFRA PAINTER 6 6 MARGARITA MARGARITA T VISIT 15 MINUTES HOSPITAL [facility] - 6 6 [facility] OUTPATIEN INC T EMERGENCY 42896 RACHEL SOTO 6 6 [facility] T VISIT MODERATE SEVERITY EMERGENCY 30487 [facility] 6 6 [facility] DEPARTMEN INC T VISIT LOW/MODER SEVERITY OFFICE 32315 EFRA PAINTER 6 6 MARGARITA MARGARITA T VISIT 15 MINUTES EMERGENCY 55560 [facility] 6 6 [facility] DEPARTMEN INC T VISIT MODERATE SEVERITY EMERGENCY 01376 RACHEL ALCOCER [facility] DEPT 6 6 PHYSICIAN VISIT S, [facility] HIGH SEVERITY& THREAT [facility] - 6 6 [facility] OUTPATIEN INC T OFFICE 23091 EFRA PAINTER 6 6 MARGARITA MARGARITA T VISIT 15 MINUTES OFFICE 33312 EFRA PAINTER 6 6 MARGARITA MARGARITA T VISIT 15 MINUTES OFFICE 66248 EFRA PAINTER 6 6 MARGARITA MARGARITA T VISIT 15 MINUTES EMERGENCY 57302 [facility] 6 6 [facility] DEPARTMEN INC T VISIT LOW/MODER SEVERITY EMERGENCY 45419 RACHEL BAILEY 6 6 PHYSICIAN U [facility] T VISIT MODERATE SEVERITY HOSPITAL [facility] - 6 6 [facility] OUTPATIEN INC T OFFICE 88222 [facility] GABRIELLA OUTPATIEN 6 6 PHYSICIAN MAT T VISIT S GROUP 25 MINUTES HOSPITAL [facility] - 6 6 [facility] OUTPATIEN INC T OFFICE 39059 EFRA VERASPATIEN 6 6 MARGARITA MARGARITA T VISIT 15 MINUTES OFFICE 73433 EFRA KRAUS OUTPATIEN 6 6 MARGARITA MARGARITA T VISIT 15 MINUTES OFFICE 92636 EFRA KRAUS OUTPATIEN 6 6 MARGARITA MARGARITA T VISIT 15 MINUTES OFFICE 14624 [facility] GABRIELLA OUTPATIEN 6 6 PHYSICIAN MAT T VISIT S GROUP 25 MINUTES HOSPITAL [facility] - 6 6 [facility] OUTPATIEN INC T OFFICE 45930 EFRA KRAUS OUTPATIEN 6 6 MARGARITA MARGARITA T VISIT 15 MINUTES OFFICE 28696 EFRA KRAUS OUTPATIEN 6 6 MARGARITA MARGARITA T VISIT 15 MINUTES OFFICE 31484 EFRA KRAUS OUTPATIEN 6 6 MARGARITA MARGARITA T VISIT 15 MINUTES OFFICE 98756 [facility] GABRIELLA OUTPATIEN 6 6 PHYSICIAN MAT T VISIT S GROUP 25 MINUTES HOSPITAL [facility] - 6 6 [facility] OUTPATIEN INC [facility] A[facility] - 6 6 [facility] INPATIENT INC
--- OUTSIDE RECORDS SUMMARY | 2016-08-11 09:11 | External Medical Summary Rpt ---
Demographics Preferred Language Emirati Marital Status Unknown Sabianism Affiliation Unknown Race Unknown Ethnic Group Unknown Author Author , Organization [employer] Address Unknown Phone Unavailable Purpose Continuity of Care Document - 05-09-1996 through 2016 Immunization Name Date Route CVX Reacti Commen Provid Is Given on t er Refuse d Td Histor H149 No (adult 1996 ical ), Inform adsorb ation ed - Source Unspec ified
--- OUTSIDE RECORDS SUMMARY | 2016-08-11 09:11 | External Medical Summary Rpt ---
Author Author RUPERTO Kam, [employer] Organization [employer] Address Unknown Phone Unavailable
--- OUTSIDE RECORDS SUMMARY | 2016-08-11 09:11 | External Medical Summary Rpt ---
Demographics Preferred Language Eritrean Marital Status Unknown Hindu Affiliation Unknown Race Unknown Ethnic Group Unknown Author Author , Organization [employer] Address Unknown Phone Unavailable Purpose Continuity of Care Document - 05-09-1996 through 2016 Immunization Name Date Route CVX Reacti Commen Provid Is Given on t er Refuse d Td Histor H149 No (adult 1996 ical ), Inform adsorb ation ed - Source Unspec ified
--- OUTSIDE RECORDS SUMMARY | 2016-08-11 09:11 | External Medical Summary Rpt ---
Author Author , Organization [employer] Address Unknown Phone Unavailable Care Team Providers Care Sales Office Administrator Name Role Phone EFRA AVILA, EFRA Unavailable [...] [facility] Unavailable Unavailable INC, [facility] Unavailable Unavailable [facility] P, [facility], Unavailable Unavailable [facility] Unavailable [facility]available [facility] Unavailable Unavailable [facility], [facility] Unavailable Unavailable [facility], [facility] STUART ARANZA, STUART Unavailable Unavailable ARANZA [facility] Unavailable Unavailable INTERNAL MED, [facility] [...] Diagnosis DOS Provider Status I119 HYPERTENSIV 05-19-2016 [facility] E HEART PHYSICIANS DISEASE GROUP WITHOUT HEART FAILURE 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 R5383 OTHER 05-19-2016 [facility] FATIGUE PHYSICIANS GROUP G629 POLYNEUROPA 04-20-2016 [facility] THY PHYSICIANS UNSPECIFIED GROUP R202 PARESTHESIA 04-20-2016 [facility] OF SKIN PHYSICIANS GROUP 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 D234 OTHER 02-20-2016 [facility] BENIGN PHYSICIANS NEOPLASM OF GROUP SKIN OF SCALP AND NECK D485 NEOPLASM OF 02-20-2016 [facility] UNCERTAIN PHYSICIANS BEHAVIOR OF GROUP SKIN D492 NEOPLASM OF 02-20-2016 [facility] BEHAVIOR INC BONE SOFT TISSUE & SKIN L821 OTHER 02-20-2016 [facility] KERATOSIS R52 PAIN 02-20-2016 [facility] UNSPECIFIED PHYSICIANS GROUP [id number] NEOPLASM OF 02-07-2016 [facility] PHYSICIANS UNSPECIFIED GROUP BEHAVIOR OT SPEC SITES J309 ALLERGIC 02-07-2016 [facility] RHINITIS PHYSICIANS UNSPECIFIED GROUP 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 SEPTUM GROUP [id number] ENCOUNTER 02-07-2016 [facility] P AL RESPIRATORY EXAM [id number] ENCOUNTER 02-07-2016 [facility] P AL LABORATORY EXAM I10 ESSENTIAL 01-27-2016 EFRA AVILA PRIMARY HYPERTENSIO N [id number] PAIN IN 12-30-2015 [facility] RIGHT LEG PHYSICIANS GROUP [id number] PAIN IN 12-30-2015 [facility] LEFT LEG PHYSICIANS GROUP J069 ACUTE UPPER 11-29-2015 EFRA AVILA RESPIRATORY INFECTION UNSPECIFIED [id number] PAIN IN LEG 10-28-2015 [facility] PHYSICIANS UNSPECIFIED GROUP D649 ANEMIA 10-07-2015 [...] UNSPECIFIED PHYSICIANS, PLLC R55 SYNCOPE AND 09-23-2015 [facility] P [id number] PERSONAL 09-23-2015 [facility]ISTORY OF [facility] P DEPENDENCE M6240 CONTRACTURE 09-20-2015 EFRA MARGARITA OF MUSCLE UNSPECIFIED SITE E039 HYPOTHYROID 05-30-2015 [facility] PHYSICIANS UNSPECIFIED LA Z125 ENCOUNTER 05-30-2015 [facility] SCREENING PHYSICIANS MALIGNANT LA NEOPLASM PROSTATE J0100 ACUTE 05-23-2015 [facility] PHYSICIANS, SINUSITIS PLLC UNSPECIFIED M150 PRIMARY 05-10-2015 ARNDAT MARGARITA GENERALIZED OSTEOARTHRI TIS M542 CERVICALGIA 04-23-2015 [facility] PHYSICIANS GROUP R079 CHEST PAIN 04-23-2015 [facility] UNSPECIFIED PHYSICIANS GROUP [id number] ATELECTASIS 04-03-2015 [facility] R0602 SHORTNESS 04-03-2015 [facility] I214 NON-ST 04-01-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 MED R51 HEADACHE 04-01-2015 [facility] R748 ABNORMAL 04-01-2015 [facility] P ENZYMES Medications Na ND Rx [...] Procedure DOS Code Location Performer Comment ECG 92828 [facility] ROUTINE 7 [facility] ECG INC INC W/LEAST 12 LDS TRCG ONLY W/O I&R ECG 40382 [facility] ROUTINE 7 PHYSICIAN ECG S GROUP W/LEAST 12 LDS I&R ONLY ADJT TIS 08821 [facility] TRNS/REAR 6 [facility] GMT INC INC F/C/C/M/N /A/G/H/F 10SQCM/< ANES 36118 [facility] INTEG 6 ANESTH MUSC & OF THE NRV HEAD BLUE NECK&[place] [address] [facility], AXEL SURG 6 LLC PATHOLOGY GROSS&LIZ ROSCOPIC EXAM ADJACENT 01003 [facility] TISSUE 6 [facility] TRANSFER/ INC INC REARGMT TRUNK 10 SQCM/< BLOOD 27475 [facility] COUNT 6 [facility] COMPLETE INC INC AUTO&AUTO DIFRNTL WBC COLLECTIO 63018 [facility] N VENOUS 6 [facility] BLOOD INC INC VENIPUNCT URE ECG 33001 [facility] ROUTINE 6 [facility] ECG INC INC W/LEAST 12 LDS TRCG ONLY W/O I&R ECG 26765 [facility]OWN ROUTINE 6 [facility] W/LEAST P 12 LDS I&R ONLY COMPREHEN 22217 [facility] SIVE 6 [facility] METABOLIC INC INC PANEL COLLECTIO 05290 [facility] N VENOUS 6 [facility] BLOOD INC INC VENIPUNCT URE HEMOGLOBI 10388 [facility] N 6 [facility] GLYCOSYLA INC INC KANCHAN A1C CYANOCOBA 83785 COMBINED COMBINED MATY 6 PHYSICIAN PHYSICIAN VITAMIN S [place] S LA B-12 [place] [address] [facility] FOLIC 6 [facility] AC[facility] HOLDINGS HOLDING SERUM BLOOD 10222 COMBINED COMBINED COUNT 6 PHYSICIAN PHYSICIAN COMPLETE S LA S LA AUTO&AUTO DIFRNTL WBC BASIC 38164 [facility] ZHENGON METABOLIC 6 [facility] H[facility] [place] [address] [facility] FREE 6 [facility] [place] [address] [facility] THYROID 6 [facility] STIMULATI INC INC NG HORMONE TSH BLOOD 47103 [facility] COUNT 6 [facility] COMPLETE INC INC AUTO&AUTO DIFRNTL WBC GLUC BLD 07307 [facility] GLUC MNTR 6 [facility] DEV INC INC CLEARED FDA SPEC HOME USE NATRIURET 68001 [facility] IC 6 [facility] PEPTIDE INC INC ECG 99725 [facility] ROUTINE 6 [facility] ECG INC INC W/LEAST 12 LDS TRCG ONLY W/O I&R CREATINE 63014 [facility] KINASE 6 [facility] [place] [address] [facility] TROPONIN 6 [facility] QUANTITAT INC INC NEFTALI BLOOD 86799 [facility] COUNT 6 [facility] COMPLETE INC INC AUTO&AUTO DIFRNTL WBC ECG 51409 [facility] BROWN ROUTINE 6 [facility] W/LEAST P 12 LDS I&R ONLY CREATINE 18525 [facility] KINASE MB 6 [facility] FRACTION INC INC ONLY COMPREHEN 49275 [facility] SIVE 6 [facility] METABOLIC INC INC PANEL FIBRIN 45237 [facility] DGRADJ 6 [facility] PRODUCTS INC INC D-DIMER QUAL/[place] [address] BENNIEPravin LESLI HEAD/BRAI 6 MEDICAL BALDEMAR N W/[place] [address] COMBINED COMBINED TRIIODOTH 6 PHYSICIAN PHYSICIAN YRONINE S LA S LA T3 TOTAL TT3 GENERAL 51893 COMBINED COMBINED HEALTH 6 PHYSICIAN [place] [address] COMBINED COMBINED FREE 6 PHYSICIAN PHYSICIAN THYROXINE S LA S LA SEDIMENTA 42152 COMBINED COMBINED TION RATE 6 PHYSICIAN PHYSICIAN RBC S LA S LA NON-AUTOM ATED 25 35252 [facility] HYDROXY 6 [facility]MAR OMAR INCLUDES HOLDINGS HOLDINGS FRACTIONS IF PERFORMED PROSTATE G0103 COMBINED COMBINED CANCER 6 PHYSICIAN PHYSICIAN SCREENING S LA S LA ; PSA TEST LIPID 53465 COMBINED COMBINED PANEL 6 PHYSICIAN PHYSICIAN S LA S LA ECG 11231 [facility] ZHENGON ROUTINE 6 [facility] ECG INC INC W/LEAST 12 LDS TRCG ONLY W/O I&R INJ J0702 EFRA KRAUS BETAMETHA 6 MARGARITA MARGARITA SONE ACETATE & PHOSPHATE 3 MG ECG 01370 [facility] ROUTINE 6 [facility] ECG INC INC W/LEAST 12 LDS TRCG ONLY W/O I&R ECG 66617 [facility] ROUTINE 6 [facility] ECG INC INC W/LEAST 12 LDS TRCG ONLY W/O I&R HOSPITAL 15250 [place] STEPHANIE DISCHARGE 6 [facility] INTERNAL MANAGEMEN MED T 30 MIN/< [place] [address] MARTINEZ LOBOCHER ANGIOGRAP 6 MEDICAL BALDEMAR HY CHEST IMAGING W/CONTRAS ASS T/NONCONT RAST SBSQ [address]/DAY INTERNAL 25 MED MINUTES FLUOROSCO [id number] [facility] PY LEFT 6 [facility] HEART LOW INC INC OSMOLAR CONTRAST MEASUREME [id number] [facility] NT 6 [facility] CARDIAC INC INC SAMPLING PRESS LT HEART PERQ FLUORO [id number] [facility] MULTI 6 [facility] CORONARY INC [place] [address] MARTINEZ BALLESTEROS HEAD/BRAI 6 MEDICAL N W/O IMAGING CONTRAST ASS MATERIAL ECG 18286 [facility] STEPHANIE ROUTINE 6 [facility] W/LEAST P 12 LDS I&R ONLY INITIAL [address]/DAY INTERNAL 50 MED MINUTES RADIOLOGI 46564 MARTINEZ LESLI C EXAM 6 MEDICAL CHEST 2 IMAGING VIEWS ASS FRONTAL&L ATERAL Encounters Encounter Start End Date Code Location Performer Type Date OFFICE 30759 [facility] GABRIELLA OUTBEAU 7 7 PHYSICIAN T VISIT S GROUP 25 MINUTES HOSPITAL [facility] - 7 7 [facility] OUTPATIEN INC T OFFICE 42489 [facility] LASHANDA PAINTER 7 7 PHYSICIAN SWAPNILAM T VISIT S GROUP 15 MINUTES HOSPITAL [facility] - 6 6 [facility] OUTPATIEN INC T OFFICE 42009 [facility] NARCISO OUTPATIEN 6 6 PHYSICIAN ARANZA T NEW 20 S GROUP MINUTES HOSPITAL [facility] - 6 6 [facility] OUTPATIEN INC T OFFICE 88467 EFRA KRAUS OUTPATIEN 6 6 MARGARITA MARGARITA T VISIT 15 MINUTES OFFICE 72300 [facility] LASHANDA PAINTER 6 6 PHYSICIAN OGTOMASDDAM T VISIT S GROUP 15 MINUTES OFFICE 16941 EFRA PAINTER 6 6 MARGARITA MARGARITA T VISIT 15 MINUTES HOSPITAL [facility] - 6 6 [facility] OUTPATIEN INC T OFFICE 00260 [facility] MICHELLEChristineAlfred MADINA 6 6 PHYSICIAN SUSANNAH Johnson NEW 45 S GROUP JAL MINUTES OFFICE 94045 EFRA PAINTER 6 6 MARGARITA MARGARITA T VISIT 15 MINUTES OFFICE 50251 EFRA PAINTER 6 6 MARGARITA MARGARITA T VISIT 15 MINUTES HOSPITAL [facility] - 6 6 [facility] OUTPATIEN INC T EMERGENCY 31191 RACHEL SOTO 6 6 [facility] T VISIT MODERATE SEVERITY EMERGENCY 03926 [facility] 6 6 [facility] DEPARTMEN INC T VISIT LOW/MODER SEVERITY OFFICE 54749 EFRA PAINTER 6 6 MARGARITA MARGARITA T VISIT 15 MINUTES EMERGENCY 75868 [facility] 6 6 [facility] DEPARTMEN INC T VISIT MODERATE SEVERITY EMERGENCY 08425 RACHEL ALCOCER [facility] DEPT 6 6 PHYSICIAN VISIT S, [facility] HIGH SEVERITY& THREAT [facility] HOSPITAL [facility] - 6 6 [facility] OUTPATIEN INC T OFFICE 24825 EFRA PAINTER 6 6 MARGARITA MARGARITA T VISIT 15 MINUTES OFFICE 74737 EFRA PAINTER 6 6 MARGARITA MARGARITA T VISIT 15 MINUTES OFFICE 94019 EFRA PAINTER 6 6 MARGARITA MARGARITA T VISIT 15 MINUTES EMERGENCY 49102 [facility] 6 6 [facility] DEPARTMEN INC T VISIT LOW/MODER SEVERITY EMERGENCY 54941 RACHEL BAILEY 6 6 PHYSICIAN U [facility] V[facility] MODERATE SEVERITY HOSPITAL [facility] - 6 6 [facility] OUTPATIEN INC T OFFICE 83762 [facility] GABRIELLA OUTPATIEN 6 6 PHYSICIAN MAT T VISIT S GROUP 25 MINUTES HOSPITAL [facility] - 6 6 [facility] OUTPATIEN INC T OFFICE 10372 EFRA VERASPATIEN 6 6 MARGARITA MARGARITA T VISIT 15 MINUTES OFFICE 82342 EFRA KRAUS OUTPATIEN 6 6 MARGARITA MARGARITA T VISIT 15 MINUTES OFFICE 02953 EFRA KRAUS OUTPATIEN 6 6 MARGARITA MARGARITA T VISIT 15 MINUTES OFFICE 46713 [facility] GABRIELLA OUTPATIEN 6 6 PHYSICIAN MAT T VISIT S GROUP 25 MINUTES HOSPITAL [facility] - 6 6 [facility] OUTPATIEN INC T OFFICE 51269 EFRA KRAUS OUTPATIEN 6 6 MARGARITA MARGARITA T VISIT 15 MINUTES OFFICE 72844 EFRA KRAUS OUTPATIEN 6 6 MARGARITA MARGARITA T VISIT 15 MINUTES OFFICE 48010 EFRA KRAUS OUTPATIEN 6 6 MARGARITA MARGARITA T VISIT 15 MINUTES OFFICE 20299 [facility] GABRIELLA OUTPATIEN 6 6 PHYSICIAN MAT T VISIT S GROUP 25 MINUTES HOSPITAL [facility] - 6 6 [facility] OUTPATIEN INC [facility] ADELE - 6 6 [facility] INPATIENT INC
[2016-08-11] MEDS ORDERED: GABAPENTIN300 MG PO ×2 (09:12→09:41)
[2016-08-11 09:29] LABS: URINE BILIRUBIN - DIPSTICK NEGATIVE (NEG); URINE BLOOD NEGATIVE (NEG)
--- NOTE | 2016-08-11 09:34 | Urgent Treatment Center Report ---
History of Present Issue Date/Time Seen by Provider 08/11/16 0967 Visit Reason Pt arrived:Walked Presenting Problem:PT STATES HE WAS TOLD LAST NIGHT BY HIS FRIEND THAT SHE WAS TREATED A WEEK AGO FOR TRICH. STATES HE DOES NOT HAVE ANY SYMPTOMS BUT WOULD LIKE TO BE TESTED Location if Accident: Onset of symptoms date/time:/ or onset unknown for:MEDICAL HX UNKNOWN Have you (or family members/close friends) recently traveled outside the [place]? N If Yes, where/when: Have you had exposure to infectious disease within the past month? TB? Other? Specify: Source patient Exam Limitations no limitations Comment 60-year-old male presents for sexually transmitted disease exposure and medication refills. Patient states he was sexually active with a female and informed him last night she was being treated for Trichomonas. Patient states he has no symptoms. Patient states he needs his regular routine medication filled due to Dr. West's passing. Patient states today find new PCP ALLERGIES Coded Allergies: lisinopril (Mild, 02/20/16) amoxicillin (From AMOXIL) (02/20/16) Home Medications Active Scripts Aspirin (Aspir-Low) 81 MG PO DAILY #90 TAB Ref 2 Prov: 04/03/15 Reported Medications NEBIVOLOL HCL (Bystolic) 10 MG PO QHS Amlodipine Besylate (Amlodipine) 5 MG PO DAILY #30 Gabapentin (Gabapentin 300MG) 300 MG PO BID History Medical History General CAD? No Angina: No FL: No Hypertension? Yes Hyperlipidemia? No CHF? No DVT? No PE? No COPD? No Asthma? No Anemia? No GERD? No Gastric ulcers? No GI Bleed? No Hernia? No Thyroid Problems? No Hypothyroidism? No CVA? No Seizures? No Diabetes? No Renal Insuffiency? No UTI? No Stones? Yes BPH? No GB Disease: No Nephritic Syndrome? No Asplenia? No Hepatitis? No Sickle Cell Disease? No Arthritis? No Migraines? No Cataracts? No Glaucoma? No MRSA? No HIV? No TB? No Anxiety? No Depression? No Cancer? No Immunization HX DT/Tetanus > 10 Years Ago Flu Refused Pneumonia Never Had Surgical Hx Previous Surgery?Y APPENDECTOMY LITHOTRIPSY HEART CATH MOLES REMOVED Family History Family HX Diabetes No CAD Yes Hypertension Yes Hyperlipidemia No Cancer Yes TB No Social History Smoking Hx Smoker: Former Smoker Tobacco: No Packs/day N/A Alcohol Alcohol: No Review of Systems All Other Systems Reviewed and Negative Genitourinary no symptoms reported, see HPI. Physical Exam Vital Signs Vital Signs Date Time Temp Pulse Resp B/P Pulse O2 O2 Flow FiO2 Ox Delivery Rate 08/11 0909 98.2 87 20 162/90 98 - WBC >12,000 or <4,000 or 10% bands? 2 or more SIRS Criteria Met? B/P:162/90 MAP:114 Creatinine >2.0? UA output<0.5ml/kg/hr for 2 hrs? Platelet count >100,000? Lactate >2.0mmol/1? INR >1.2 or PTT > than 60 sec? Evidence of Organ Dysfunction? Provider documented clinical suspician of infection? Sepsis Criteria Count: 1 Sepsis Risk: General Appearance normal appearance, no apparent distress Respiratory Status Yes: trachea midline, chest symmetrical, non tender chest. No: respiratory distress. Lung Sounds bilateral: normal breath sounds, lungs clear. Cardiovascular normal exam, regular rate/rhythm, no peripheral edema Neurologic alert, normal exam, oriented x 3 Medical Decision Making LABS/Meds/Orders Pt receiving controlled substance in ED? No Results/Orders Laboratory Tests 08/11/16 0915: Ur Chlamydia DNA (PCR) Pending, Urine GC DNA Probe Pending, Urine Color YELLOW, Urine Appearance CLEAR, Urine pH 6.0, Ur Specific [place] 1.010, Urine Protein NEGATIVE, Urine Ketones NEGATIVE, Urine Blood NEGATIVE, Urine Nitrate NEGATIVE, Urine Bilirubin NEGATIVE, Urine Urobilinogen 0.2, Ur Leukocyte Esterase NEGATIVE , Urine WBC OCC, Urine Bacteria TRACE, Urine Mucus 3+, Urine Trichomonas NONE, Urine Glucose NEGATIVE Orders Procedure Date/time Status CHL/GC URINE 08/11 917 Active URINALYSIS/COMPLETE 08/11 917 Complete Departure Departure Time of Disposition 0932 Disposition DC Home or Self Care(routine) Clinical Impression Primary Impression: Sexually transmitted disease exposure Condition STABLE Patient Instructions How to Detect and Treat STDs Additional Instructions Importance of safe sex, find a PCP, take antibiotics no drinking alcohol while on antibiotics Discharge Counseling Counseled pt/family regarding diagnosis, test results, medications/RX, home care, follow up needs Prescriptions Current Visit Scripts Metronidazole (Flagyl) 2 gm PO ONCE 1 Days Gabapentin (Gabapentin 300MG) 300 MG PO BID 30 Days Amlodipine Besylate (Amlodipine) 5 MG PO DAILY 30 Days Aspirin (Aspir-Low) 81 MG PO DAILY 30 Days at 100
[2016-08-11] MEDS ORDERED: FLAGYL500 M1 PO ×2 (09:38)
[2016-08-11] MEDS ORDERED: ASPIR-LOW81 MG PO (09:41)
[2016-08-11] MEDS ORDERED: AMLODIPINE5 M1 PO (09:41)
[2016-08-11 10:14] VITALS: BP 162/90
[2016-08-13 10:41] LABS: Neisseria gonorrhoeae, NAA Negative (Negative)
== END 2016-08-11 10:14 | disposition home or self-care (01) ==
LOC: UTC 09:01
PROVIDERS: Nurse Practitioner Family
DX: Z20.2 Contact with and (suspected) exposure to infections with a predominantly sexual mode of transmission (principal)

== ENCOUNTER 2017-01-27 13:10 | Emergency (ER) | payer MEDICAID ==
[~2017-01-27] VITALS: Ht 175.3 cm; Wt 88.5 kg
[~2017-01-27 13:10] MED LIST changes: +AMLODIPINE5 M1 PO; +BUSPIRONE HYDR7.5 MG PO; +FLAGYL500 M1 PO; +GABAPENTIN300 MG PO
--- OUTSIDE RECORDS SUMMARY | 2017-01-27 13:18 | External Medical Summary Rpt | CCD ---
Author Author , RUPERTO HICKEY Address Unknown Phone [email or web address] Care Team Providers Care Store Worker Name Role Phone JEROMY KNUTSON MD, Unavailable Unavailable JEROMY DIAMOND MD, Unavailable Unavailable DEBORA DIAMOND MD Purpose Continuity of Care Document - 12-14-2012 through 2016 Problems Code Diagnosis DOS Provider Status 592.1 592.1 12-14-2012 [facility] 592.9 592.9 12-14-2012 [facility] NOS Allergies, Adverse Reactions, Alerts Type Allergy to substance Drug Allergy Adverse Reaction to Substance Substance Reaction Severity INGREDIENT: NO KNOWN Unknown Unknown - NO KNOWN DRUG ALLERGY No Known Allergies - Unknown Mild Nka Medications Na ND Rx Da Fi Fi Am Da Di Ph RX Ph St me C No te ll ll ou ys ag ar # ys at rm s nt no ma ic us Or Da si cy ia de te s n re d Sa 63 10 0 No li 80 [...] ve /M L CA RP UJ CT WI 00 10 0 No OM 64 -0 [...] Order Detail nces retati t Range on Urinalysis dipstick W Reflex Microscopic panel in Urine (08-11-2016 09:15) Appeara CLEAR CLEAR complet nce of 017 ed Urine 09:15 Bacteri TRACE O complet a 017 ed [Presen 09:15 ce] in Urine sedimen t by Light microsc opy Bilirub NEGATIV NEG complet in 017 E ed [Presen 09:15 ce] in Urine by Test strip Erythro NEGATIV NEG complet cytes 017 E ed [Presen 09:15 ce] in Urine Color YELLOW YELLOW complet of 017 ed Urine 09:15 Ketones NEGATIV NEG complet 017 E ed [Presen 09:15 ce] in Urine by Automat ed test strip Mucus NEGATIV NEG complet [Presen 017 E ed ce] in 09:15 Urine sedimen t by Light microsc opy Mucus 3+ NONE complet [Presen 017 ed ce] in 09:15 Urine sedimen t by Light microsc opy Nitrite NEGATIV NEG complet 017 E ed [Presen 09:15 ce] in Urine by Test strip Trichom NONE NONE complet onas sp 017 ed 09:15 [Presen ce] in Urine by Light microsc opy Urobili 0.2 NEG complet nogen 017 ed [Presen 09:15 ce] in Urine by Test strip COMPREHENSIVE METABOLIC PANEL (12-14-2012 13:00) Glucose 140 [...] with AUTO DIFF (12-14-2012 13:00) WBC # 7.9 4.8-10. complet Bld 013 K/MM3 8 [...] 013 gm/dL ed SerPl-m 00:48 Cnc Globuli 2 3.5 1.3-3.2 complet n 013 gm/dL ed [...] K/MM3 8 ed Auto 00:48 RBC # 2 4.76 4.6-6.2 complet Bld 013 M/mm3 ed [...] % 10-50 complet 013 ed 00:48 Monocyt 5.8 % 1.7-9.3 complet es Fr 013 ed Bld 00:48 Auto Eosinop 1.5 % 0.1-12. complet hil Fr 013 0 ed Bld 00:48 Auto Basophi 0.3 % 0.1-2.0 complet ls Fr 013 ed Bld 00:48 Auto Granulo 6.0 1.3-8.0 complet cytes # 013 K/mm3 ed Bld 00:48 Auto Lymphoc 1.8 0.7-4.5 complet ytes Fr 013 K/mm3 ed Bld 00:48 Auto Monocyt 0.5 0.1-1.0 complet es # 013 K/mm3 ed Bld 00:48 Auto Eosinop 0.1 0.0-0.4 complet hil # 013 K/mm3 ed Bld 00:48 Auto Basophi 12-14-2 0.0 0-0.2 complet ls # 013 K/MM3 [...] 1+ NONE complet MUCUS 013 ed 00:40 Encounters Encounter Start End Date Code Location Performer Type Date Emergency DOMINGO KNUTSON MD (ER) 3 12:48 3 15:35 [facility] DOMINGO DIAMOND (ER) 3 01:00 3 02:52 [facility] DEBORA
--- OUTSIDE RECORDS SUMMARY | 2017-01-27 13:18 | External Medical Summary Rpt | CCD ---
Author Author [employer] Organization [employer] Address Unknown Phone Unavailable Purpose Continuity of Care Document - through 2016
--- OUTSIDE RECORDS SUMMARY | 2017-01-27 13:18 | External Medical Summary Rpt | CCD ---
Author Author , RUPERTO HICKEY Address Unknown Phone [email or web address] Care Team Providers Care Seaman Name Role Phone JEROMY KNUTSON MD, Unavailable Unavailable JEROMY DIAMOND MD, Unavailable Unavailable DEBORA DIAMOND MD Purpose Continuity of Care Document - 12-14-2012 through 2016 Problems Code Diagnosis DOS Provider Status 592.1 592.1 12-14-2012 [facility] 592.9 592.9 12-14-2012 [facility] NOS Allergies, Adverse Reactions, Alerts Type [...] ve /M L CA RP UJ CT ND 00 10 0 No OM 64 -0 [...] (ER) 3 12:48 3 15:35 [facility] Emergency DOMINGO DIAMOND (ER) 3 01:00 3 02:52 [facility] DEBORA
--- OUTSIDE RECORDS SUMMARY | 2017-01-27 13:19 | External Medical Summary Rpt | CCD ---
Demographics Preferred Language Greek Marital Status Unknown Adventism Affiliation Unknown Race Unknown Ethnic Group Unknown Author Author , RUPERTO HICKEY Address Unknown Phone Immunization Unable to retrieve immunization data due to connection failure with Immunization Registry. Please try again later.
--- OUTSIDE RECORDS SUMMARY | 2017-01-27 13:19 | External Medical Summary Rpt | CCD ---
Demographics Preferred Language Ukrainian Marital Status Unknown Pentecostalism Affiliation Unknown Race Unknown Ethnic Group Unknown Author Author , RUPERTO HICKEY Address Unknown Phone Immunization Unable to retrieve immunization data due to connection failure with Immunization Registry. Please try again later.
--- OUTSIDE RECORDS SUMMARY | 2017-01-27 13:19 | External Medical Summary Rpt ---
Author Author RUP[employer]O Kam, [employer] Organization [employer] Address Unknown Phone Unavailable Results Chlamydia/GC Amplification Observa Value Referen Units Interpr Notes Date tion ce etation Range Chlamyd Negativ Negativ No No No Aug 11 ia e e informa informa informa 2017 trachom tion in tion in tion in 9:15 AM atis source source source rRNA data data data [Presen ce] in Unspeci fied specime n by Probe & target amplifi cation method Neisser Negativ Negativ No No Perform Aug 11 ia e e informa informa ed at: 2017 gonorrh tion in tion in CB - 9:15 AM oeae source source [facility] rRNA data data [Presen [place] ce] in [address], [place], [place] Probe & [id number] target 69Lab Directo amplifi r: cation Vincent method Crystal samano PhD, Phone: [phone] Urinalysis dipstick W Reflex Microscopic panel in Urine Observa Value Referen Units Interpr Notes Date tion ce etation Range Appeara CLEAR CLEAR No No No Aug 11 nce of informa informa informa 2017 Urine tion in tion in tion in 9:15 AM source source source data data data Bilirub NEGATIV NEG No No No Aug 11 in E informa informa informa 2017 [Presen tion in tion in tion in 9:15 AM ce] in source source source Urine data data data by Test strip Erythro NEGATIV NEG No No No Aug 11 cytes E informa informa informa 2017 [Presen tion in tion in tion in 9:15 AM ce] in source source source Urine data data data Color YELLOW YELLOW No No No Aug 11 of informa informa informa 2017 Urine tion in tion in tion in 9:15 AM source source source data data data Glucose NEG No No No Aug 11 [Mass/vol informati informati informati 2017 9:15 ume] in on in on in on in AM Urine by source source source Test data data data strip Ketones NEGATIV NEG mg/dL No No [place] 6 E informa informa 2017 [Presen tion in tion in 9:15 AM ce] in source source Urine data data by Automat ed test strip Mucus NEGATIV NEG No No No [place] 6 [Presen E informa informa informa 2016 ce] in tion in tion in tion in 9:15 AM Urine source source source sedimen data data data t by Light microsc opy Nitrite NEGATIV NEG No No No [place] 6 E informa informa informa 2016 [Presen tion in tion in tion in 9:15 AM ce] in source source source Urine data data data by Test strip pH of 5.0 - 8.5 No Normal No [place] 6 Urine informati informati 2017 9:15 on in on in AM source source data data Protein NEG mg/dL No No [place] 6 [Mass/vol informati informati 2017 9:15 ume] in on in on in AM Urine by source source Automated data data test strip Specific 1.005 - No Normal No [place] 6 gravity 1.030 informati informati 2017 9:15 of Urine on in on in AM source source data data Urobili 0.2 NEG E.U./dL No No [place] 6 nogen informa informa 2016 [Presen tion in tion in 9:15 AM ce] in source source Urine data data by Test strip Urinalysis dipstick W Reflex Microscopic panel in Urine Observa Value Referen Units Interpr Notes Date tion ce etation Range Appeara CLEAR CLEAR No No No [place] 6 nce of informa informa informa 2017 Urine tion in tion in tion in 9:15 AM source source source data data data Bacteri TRACE O No No No [place] 6 a informa informa informa 2016 [Presen tion in tion in tion in 9:15 AM ce] in source source source Urine data data data sedimen t by Light microsc opy Bilirub NEGATIV NEG No No No [place] 6 in E informa informa informa 2017 [Presen tion in tion in tion in 9:15 AM ce] in source source source Urine data data data by Test strip Erythro NEGATIV NEG No No No [place] 6 cytes E informa informa informa 2017 [Presen tion in tion in tion in 9:15 AM ce] in source source source Urine data data data Color YELLOW YELLOW No No No [place] 6 of informa informa informa 2017 Urine tion in tion in tion in 9:15 AM source source source data data data Glucose NEG No No No [place] 6 [Mass/vol informati informati informati 2017 9:15 ume] in on in on in on in AM Urine by source source source Test data data data strip Ketones NEGATIV NEG mg/dL No No [place] 6 E informa informa 2017 [Presen tion in tion in 9:15 AM ce] in source source Urine data data by Automat ed test strip Mucus NEGATIV NEG No No No [place] 6 [Presen E informa informa informa 2016 ce] in tion in tion in tion in 9:15 AM Urine source source source sedimen data data data t by Light microsc opy Mucus 3+ NONE No No No [place] 6 [Presen informa informa informa 2016 ce] in tion in tion in tion in 9:15 AM Urine source source source sedimen data data data t by Light microsc opy Nitrite NEGATIV NEG No No No [place] 6 E informa informa informa 2016 [Presen tion in tion in tion in 9:15 AM ce] in source source source Urine data data data by Test strip pH of 5.0 - 8.5 No Normal No [place] 6 Urine informati informati 2017 9:15 on in on in AM source source data data Protein NEG mg/dL No No [place] 6 [Mass/vol informati informati 2017 9:15 ume] in on in on in AM Urine by source source Automated data data test strip Specific 1.005 - No Normal No [place] 6 gravity 1.030 informati informati 2017 9:15 of Urine on in on in AM source source data data Trichom NONE NONE No No No [place] 6 onas sp informa informa informa 2017 tion in tion in tion in 9:15 AM [Presen source source source ce] in data data data Urine by Light microsc opy Urobili 0.2 NEG E.U./dL No No [place] 6 nogen informa informa 2017 [Presen tion in tion in 9:15 AM ce] in source source Urine data data by Test strip Leukocyte O wbc/hpf No No [place] 6 s informati informati 2017 9:15 [#/volume on in on in AM ] in source source Urine data data
--- OUTSIDE RECORDS SUMMARY | 2017-01-27 13:19 | External Medical Summary Rpt ---
[...] data [Presen [place] ce] in [address], specime [place], [place] Probe & [id number] target 69Lab Directo amplifi r: cation Vincent method Crystal samano PhD, Phone: [phone] Urinalysis dipstick W Reflex Microscopic panel in [...]
--- NOTE | 2017-01-27 13:43 | Urgent Treatment Center Report ---
History of Present Issue Date/Time Seen by Provider 01/27/17 7868 Visit Reason Pt arrived:Walked Presenting Problem:C/O B/P BEING HIGH AND HEART RATE INCREASED Location if Accident: Onset of symptoms date/time:/ or onset unknown for:MEDICAL HX UNKNOWN Have you (or family members/close friends) recently traveled outside the [place]? N If Yes, where/when: Have you had exposure to infectious disease within the past month? TB? Other? Specify: Patient state that he normally takes his blood pressure medication at night States that he thinks he forgot to take his blood pressure medication last night and he has a history of anxiety State that he began to feel anxious after he realized that he had not taken the medcation and he didn't know if he should take it now or not so he decided to come in to the office to see if needed to take something else for his blood pressure or not ALLERGIES Coded Allergies: lisinopril (Mild, 02/20/16) amoxicillin (From AMOXIL) (02/20/16) Home Medications Active Scripts Aspirin (Aspir-Low) 81 MG PO DAILY #90 TAB Ref 2 Prov: 04/03/15 BUSPIRONE HCL (Buspirone Hydrochloride) 7.5 MG PO BID #60 TAB Prov: 01/08/17 Gabapentin (Gabapentin 300MG) 300 MG PO BID 30 Days Prov: 08/11/16 Amlodipine Besylate (Amlodipine) 5 MG PO DAILY 30 Days Prov: 08/11/16 Aspirin (Aspir-Low) 81 MG PO DAILY 30 Days Prov: 08/11/16 Reported Medications NEBIVOLOL HCL (Bystolic) 10 MG PO QHS Amlodipine Besylate (Amlodipine) 5 MG PO DAILY #30 Gabapentin (Gabapentin 300MG) 300 MG PO BID History Medical History General CAD? No Angina: No [place]: No Hypertension? Yes Hyperlipidemia? No CHF? No DVT? No PE? No COPD? No Asthma? No Anemia? No GERD? No Gastric ulcers? No GI Bleed? No Hernia? No Thyroid Problems? No Hypothyroidism? No CVA? No Seizures? No Diabetes? No Renal Insuffiency? No UTI? No Stones? Yes BPH? No GB Disease: No Nephritic Syndrome? No Asplenia? No Hepatitis? No Sickle Cell Disease? No Arthritis? No Migraines? No Cataracts? No Glaucoma? No MRSA? No HIV? No TB? No Anxiety? No Depression? No Cancer? No Immunization HX DT/Tetanus > 10 Years Ago Flu Refused Pneumonia Never Had Surgical Hx Previous Surgery?Y APPENDECTOMY LITHOTRIPSY HEART CATH MOLES REMOVED Family History Family HX Diabetes No CAD Yes Hypertension Yes Hyperlipidemia No Cancer Yes TB No Social History Smoking Hx Smoker: Never Smoker Tobacco: No Packs/day N/A Alcohol Alcohol: No Review of Systems All Other Systems Reviewed and Negative Physical Exam Vital Signs Vital Signs Date Time Temp Pulse Resp B/P Pulse O2 O2 Flow FiO2 Ox Delivery Rate 01/27 1319 98.9 112 16 145/98 98 General Appearance normal appearance, WD/WN, no apparent distress Ear, Nose, Throat hearing grossly normal, normal ENT inspection Respiratory Status Yes: trachea midline, chest symmetrical, non tender chest. No: respiratory distress. Lung Sounds bilateral: normal breath sounds, lungs clear. Cardiovascular normal exam, regular rate/rhythm Neurologic alert, normal exam, oriented x 3 Medical Decision Making LABS/Meds/Orders Pt receiving controlled substance in ED? No Progress [facility] Progress Notes Comment Patient was educated on how to take his medication Patient educated that when he misses a dose a medication to not get anxious, that when he realizes he missed a dose to take the medication as close to the scheduled time as possible however considering it is close to the the time for today doseage and his blood pressure was checked here in the office to keep his medication on schedule he needs to take the dose as scheduled tonight and not double up the medication as this could make his blood pressure to low so for future make sure that he sets a reminder on his phone from now on to remind to remember his medication Alf verbalized understanding Departure Departure Time of Disposition 1336 Disposition DC Home or Self Care(routine) Clinical Impression Primary Impression: Anxiety Condition STABLE Referrals Nithin SELBY,A.C. (Family): 2 Days-Call Office Patient Instructions DI for Anxiety -- Adult, DI for High Blood Pressure Additional Instructions Take medication as scheduled Follow up with family doctor Return if meeded Discharge Counseling Counseled pt/family regarding diagnosis, home care, follow up needs at 1343
[2017-01-27 13:45] VITALS: BP 145/98
== END 2017-01-27 13:47 | disposition home or self-care (01) ==
LOC: UTC 13:10
DX: F41.8 Other specified anxiety disorders (principal); K21.9 Gastro-esophageal reflux disease without esophagitis; R42 Dizziness and giddiness